=== PATIENT | female | born 1990 | race African-American/Black ===

== ENCOUNTER 2016-07-02 01:05 | Outpatient (CLI) | payer OTHER, BC ==
[2016-07-02 02:11] LABS: APPEARANCE,URINE CLEAR; BILIRUBIN,URINE NEGATIVE (NEGATIVE); GLUCOSE, URINE NEGATIVE (NEGATIVE); KETONES,URINE NEGATIVE (NEGATIVE); LEUKOCYTE ESTERASE,URINE SMALL (NEGATIVE); NITRITE,URINE NEGATIVE (NEGATIVE); PROTEIN,URINE NEGATIVE (NEGATIVE); URINE SPECIFIC GRAVITY 1.006; UROBILINOGEN,URINE NEGATIVE mg/dL (<2.0)
[2016-07-02 02:26] LABS: URINE BARBITURATES SCREEN NEGATIVE; URINE METHADONE SCREEN NEGATIVE; URINE OPIATES LOW NEGATIVE; URINE PHENCYCLIDINE SCREEN NEGATIVE
[2016-07-02] MEDS ORDERED: HYDROXYZINE PAMOATE 50 MG CAPSULE PO ONE (04:12)
[2016-07-02] MEDS ORDERED: HYDROXYZINE PAMOATE 50 MG CAPSULE ONE (04:14)
--- NOTE | 2016-07-02 04:25 | Non Stress Test Report ---
Non Stress Test Datetime Report Generated by CPN: 07/02/2016 04:25 DEMOGRAPHIC EGA NST: 39.5 INDICATION Indication for Study: Ordered by Provider Indication for Study (NST) Other: LC VITAL SIGNS Temperature - NST: 97.7 Pulse - NST: 60 RESP - NST: 15 NBPSYS NST: 132 NBPDIA NST: 85 URINE RESULTS Urine Protein, NST: Negative Urine Ketones - NST: Negative Urine Glucose - NST: Negative Urine Blood - NST: Positive MONITORING Monitor Explained: Monitor Explained; Test Explained; Patient Verbalized Understanding Time on Monitor: 07/02/2016 01:54 Time off Monitor: 07/02/2016 03:06 NST Duration: 72 NST INTERVENTIONS NST Interventions: PO Hydration; Reposition Patient BABY A: [id number] BABY A Movement : Present Contraction Frequency : 1.5-7 FHR Baseline : 130 Accelerations : 15X15 Variability : Moderate 6-25bpm NST Review: Meets Criteria for Reactive NST NST Review and Verified By : K Michael RN NST Results: Reactive NST COMMENTS NST Comments: Deceleration noted after prolonged contraction. Reactive NST post deceleration. Dr. Camarillo made aware. NST REPORT Report Trigger: Send Report
--- NOTE | 2016-07-02 04:45 | L&D General Admission ---
General Admit Datetime Report Generated by CPN: 07/02/2016 04:45 INFORMATION Patient Age: 26 (05/30/2016 16:29:QS system process) EDC: 07/04/2016 00:00 (07/02/2016 01:34:Christie Rodriguez RN) : 1 (07/02/2016 01:34:Christie Rodriguez RN) Para: 0 (07/02/2016 01:34:Christie Rodriguez RN) Term: 0 (07/02/2016 01:34:Christie Rodriguez RN) : 0 (07/02/2016 01:34:Christie Rodriguez RN) Spontaneous Abortions: 0 (07/02/2016 01:34:Christie Rodriguez RN) Induced Abortions: 0 (07/02/2016 01:34:Christie Rodriguez RN) Livin (07/02/2016 01:34:Christie Rodriguez RN) Cesareans: 0 (07/02/2016 01:34:Christie Rodriguez RN) VBACs: 0 (07/02/2016 01:34:Christie Rodriguez RN) Ectopic: 0 (07/02/2016 01:34:Christie Rodriguez RN) Multiple Births: 0 (07/02/2016 01:34:Christie Rodriguez RN) Baby, Number in Womb: 1 (07/02/2016 01:34:Christie Rodriguez RN) CARE Primary Pet Technologist: [facility] (07/02/2016 01:34:Christie Rodriguez RN) Month of 1st Visit: October (07/02/2016 01:34:Christie Rodriguez RN) Adequate Care: Yes (07/02/2016 01:34:Christie Rodriguez RN) Prepregnancy Weight (lb): 111 (07/02/2016 01:34:Christie Rodriguez RN) Prepregnancy Weight (kg): 50.5 (07/02/2016 01:34:QS system process) Height (in): 65 (07/02/2016 02:14:QS system process) ALLERGIES Medication Allergy: Yes (07/02/2016 01:34:Christie Rodriguez RN) Medication Allergies: Penicillins (07/02/2016) (07/02/2016 02:14:QS system process) Medication Allergies: Penicillins (01/04/2016) (05/30/2016 16:29:QS system process) Latex Allergy: No Latex Allergies (07/02/2016 01:34:Christie Rodriguez RN) COMMUNICATION Primary Language: Citizen Of [place] (07/02/2016 01:34:Christie Rodriguez RN) Medical Tx Preferred Language: Citizen Of [place] (07/02/2016 01:34:Christie Rodriguez RN) DEMOGRAPHICS Address: [address] [place] [id number] (05/30/2016 16:29:QS system process) Zipcode: [address] (05/30/2016 16:29:QS system process) Home (05/30/2016 16:29:QS system process) Work (07/02/2016 01:34:QS system process) Work (05/31/2016 05:33:QS system process) Work (05/30/2016 16:29:QS system process) SSN: [id number] (05/30/2016 16:29:QS system process) Next of Kin Name: ABEL HELMS (05/30/2016 16:29:QS system process) Next of Kin (05/30/2016 16:29:QS system process) Next of Kin Relationship: SPO (05/30/2016 16:29:QS system process) Date of : 1990 (05/30/2016 16:29:QS system process) Marital Status: (05/30/2016 16:29:QS system process) Sex: Female (05/30/2016 16:29:QS system process) Race: (05/30/2016 16:29:QS system process) Ethnicity: Non- or (05/30/2016 16:29:QS system process) Oriental Orthodox: None (05/30/2016 16:29:QS system process) DRUG AND ALCOHOL USE Alcohol: No (07/02/2016 01:34:Christie Rodriguez RN) Cigarettes: Former Smoker. [id number] (07/02/2016 01:34:Christie Rodriguez RN) Marijuana: No (07/02/2016 01:34:Christie Rodriguez RN) Cocaine: No (07/02/2016 01:34:Christie Rodriguez RN) Other Illicit Drugs: No (07/02/2016 01:34:Christie Rodriguez RN) VACCINE HISTORY Influenza Vaccine: No (07/02/2016 01:34:Christie Rodriguez RN) Pneumococcal Vaccine: No (07/02/2016 01:34:Chritsie Rodriguez RN) Tetanus Vaccine: Yes (07/02/2016 01:34:Christie Rodriguez RN) Tdap Vaccine: Yes (07/02/2016 01:34:Christie Rodriguez RN) Hepatitis B Vaccine: Yes (07/02/2016 01:34:Christie Rodriguez RN) Feeding Preference: Breast (07/02/2016 01:34:Christie Rodriguez RN) Benefit of Breast Feed Discussed: Yes (07/02/2016 01:34:Christie Rodriguez RN) Circumcision: Yes (07/02/2016 01:34:Christie Rodriguez RN) Classes Attended: Yes (07/02/2016 01:34:Christie Rodriguez RN) Tubal Ligation: No (07/02/2016 01:34:Christie Rodriguez RN) Tubal Authorization Signed: N/A (07/02/2016 01:34:Christie Rodriguez RN) Consent: N/A (07/02/2016 01:34:Christie Rodriguez RN) Consent Signed: N/A (07/02/2016 01:34:Christie Rodriguez RN) Pain Management Plans: None (07/02/2016 01:34:Christie Rodriguez RN) Plans for Labor and Delivery: None (07/02/2016 01:34:Christie Rodriguez RN) Support Person: Abel (07/02/2016 01:34:Christie Rodriguez RN) Support Person Relationship: (07/02/2016 01:34:Christie Rodriguez RN) Cultural/Spritual Practice: No (07/02/2016 01:34:Christie Rodriguez RN) Spir/Cult Dietary Needs: No (07/02/2016 01:34:Christie Rodriguez RN) LIVING SITUATION/DISCHARGE PLAN Living Arrangements: House (07/02/2016 01:34:Christie Rodriguez RN) Adequate Access to:: Electric; Heat; Refrigeration; Plumbing/Running water; Phone; Transportation (07/02/2016 01:34:Christie Rodriguez RN) WIC Program: No (07/02/2016 01:34:Christie Rodriguez RN) Discharge Italian Tutor Person: Abel (07/02/2016 01:34:Christie Rodriguez RN) Person to Help after Discharge: Abel (07/02/2016 01:34:Christie Rodriguez RN) Currently Using Commun Resources: No (07/02/2016 01:34:Christie Rodriguez RN) Car Seat for Discharge: Yes (07/02/2016 01:34:Christie Rodriguez RN) Adoption Requested: No (07/02/2016 01:34:Christie Rodriguez RN) Pt Contact w/infant Post : N/A (07/02/2016 01:34:Christie Rodriguez RN) LABS Blood Type: A Positive (07/02/2016 01:34:Christie Rodriguez RN) Antibody Screen: negative (07/02/2016 01:34:Christie Rodriguez RN) Group Beta Strep: positive (07/02/2016 01:34:Christie Rodriguez RN) Gonorrhea: Negative (07/02/2016 01:34:Christie Rodriguez RN) Chlamydia: Negative (07/02/2016 01:34:Christie Rodriguez RN) RPR/VDRL: Nonreactive (07/02/2016 01:34:Christie Rodriguez RN) Hepatitis B: Negative (07/02/2016 01:34:Christie Rodriguez RN) Rubella: Immune (07/02/2016 01:34:Christie Rodriguez RN) OB/PREVIOUS HISTORY History of Previous : No (07/02/2016 01:34:Christie Rodriguez RN) History of Gestational Diabetes: No (07/02/2016 01:34:Christie Rodriguez RN) History of PIH: No (07/02/2016 01:34:Christie Rodriguez RN) History of Incompetent Cervix: No (07/02/2016 01:34:Christie Rodriguez RN) History of Placenta Previa/Abrup: No (07/02/2016 01:34:Christie Rodriguez RN) History of Macrosomia: No (07/02/2016 01:34:Christie Rodriguez RN) History of IUGR: No (07/02/2016 01:34:Christie Rodriguez RN) History of Hemorrhage: No (07/02/2016 01:34:Christie Rodriguez RN) History of Loss/Stillborn: No (07/02/2016 01:34:Christie Rodriguez RN) History of : No (07/02/2016 01:34:Christie Rodriguez RN) History of D (Rh) Sensitization: No (07/02/2016 01:34:Christie Rodriguez RN) History Recurrent Loss/Stillborn: No (07/02/2016 01:34:Christie Rodriguez RN) History Depression/PP Depression: No (07/02/2016 01:34:Christie Rodriguez RN) History of Uterine Anomaly/ROSITA: No (07/02/2016 01:34:Christie Rodriguez RN) History of Infertility: No (07/02/2016 01:34:Christie Rodriguez RN) History of ART Treatment: No (07/02/2016 01:34:Christie Rodriguez RN) History of ROSITA: No (07/02/2016 01:34:Christie Rodriguez RN) Comments Obstetrical History: G1: current, hyperemesis, failed 1 hour gtt passed 3 hour (07/02/2016 01:34:Christie Rodriguez RN) MEDICAL HISTORY Med Hx Diabetes: No (07/02/2016 01:34:Christie Rodriguez RN) Med Hx Hypertension: No (07/02/2016 01:34:Christie Rodriguez RN) Med Hx Heart Disease: No (07/02/2016 01:34:Christie Rodriguez RN) Med Hx Autoimmune Disorder: No (07/02/2016 01:34:Christie Rodriguez RN) Med Hx Kidney Disease/UTI: No (07/02/2016 01:34:Christie Rodriguez RN) Med Hx Neurologic/Epilepsy: No (07/02/2016 01:34:Christie Rodriguez RN) Med Hx Psychiatric Disorders: No (07/02/2016 01:34:Christie Rodriguez RN) Med Hx Hepatitis/Liver Disease: No (07/02/2016 01:34:Christie Rodriguez RN) Med Hx Varicosities/Phlebitis: No (07/02/2016 01:34:Christie Rodriguez RN) Med Hx Thyroid Dysfunction: No (07/02/2016 01:34:Christie Rodriguez RN) Med Hx Trauma/Violence: No (07/02/2016 01:34:Christie Rodriguez RN) Med Hx Blood Transfusion: No (07/02/2016 01:34:Christie Rodriguez RN) Med Hx Pulmonary (Asthma,TB): No (07/02/2016 01:34:Christie Rodriguez RN) Med Hx Breast: No (07/02/2016 01:34:Christie Rodriguez RN) Med Hx TRAVEL COTA Surgery: No (07/02/2016 01:34:Christie Rodriguez RN) Med Hx Hospitalization/Surgery: No (07/02/2016 01:34:Christie Rodriguez RN) Med Hx Anesthetic Complications: No (07/02/2016 01:34:Christie Rodriguez RN) Med Hx Abnormal Pap Smear: Yes (07/02/2016 01:34:Christie Rodriguez RN) Other Medical Diseases: No (07/02/2016 01:34:Christie Rodriguez RN) Med Hx Significant Family Hx: No (07/02/2016 01:34:Christie Rodriguez RN) Details of Med/Surg Hx: abd pap and LEEP 2010 (07/02/2016 01:34:Christie Rodriguez RN) INFECTIOUS HISTORY Inf Hx Gonorrhea: No (07/02/2016 01:34:Christie Rodriguez RN) Inf Hx Chlamydia: No (07/02/2016 01:34:Christie Rodriguez RN) Inf Hx Syphilis: No (07/02/2016 01:34:Christie Rodriguez RN) Inf Hx HIV/AIDS: No (07/02/2016 01:34:Christie Rodriguez RN) Inf Hx Human Papilloma Virus: No (07/02/2016 01:34:Christie Rodriguez RN) Inf Hx Pt/Partner Genital Herpes: No (07/02/2016 01:34:Christie Rodriguez RN) Inf Hx Tuberculosis/Exposure: No (07/02/2016 01:34:Christie Rodriguez RN) Inf Hx Hepatitis B,C: No (07/02/2016 01:34:Christie Rodriguez RN) Inf Hx Rash or Viral Illness: No (07/02/2016 01:34:Christie Rodriguez RN) GENETIC HISTORY Gen Hx Age >=35 at CHIN: No (07/02/2016 01:34:Christie Rodriguez RN) Gen Hx Thalassemia: No (07/02/2016 01:34:Christie Rodriguez RN) Gen Hx Congenital Heart Defect: No (07/02/2016 01:34:Christie Rodriguez RN) Gen Hx Neural Tube Defect: No (07/02/2016 01:34:Christie Rodriguez RN) Gen Hx Down's Syndrome: No (07/02/2016 01:34:Christie Rodriguez RN) Gen Hx Luis-Sachs: No (07/02/2016 01:34:Christie Rodriguez RN) Gen Hx Amadou: No (07/02/2016 01:34:Christie Rodriguez RN) Gen Hx Familial Dysautonomia: No (07/02/2016 01:34:Christie Rodriguez RN) Gen Hx Sickle Cell Disease/Trait: Yes (07/02/2016 01:34:Christie Rodriguez RN) Gen Hx Hemophilia/Blood Disorder: No (07/02/2016 01:34:Christie Rodriguez RN) Gen Hx Muscular Dystrophy: No (07/02/2016 01:34:Christie Rodriguez RN) Gen Hx Cystic Fibrosis: No (07/02/2016 01:34:Christie Rodriguez RN) Gen Hx [place] Chorea: No (07/02/2016 01:34:Christie Rodriguez RN) Gen Hx Mental Retardation/Autism: No (07/02/2016 01:34:Christie Rodriguez RN) Gen Hx Tested for Fragile X: No (07/02/2016 01:34:Christie Rodriguez RN) Gen Hx Other Inher/Chromosomal: No (07/02/2016 01:34:Christie Rodriguez RN) Gen Hx Maternal Metabolic DO: No (07/02/2016 01:34:Christie Rodriguez RN) Gen Hx Pt Father or FOB Defect: No (07/02/2016 01:34:Christie Rodriguez RN) Gen Hx Other Genetic History: No (07/02/2016 01:34:Christie Rodriguez RN) Gen Hx Drugs/Meds since LMP: Yes (07/02/2016 01:34:Christie Rodriguez RN) Gen Hx Medications: pnv, zofran (07/02/2016 01:34:Christie Rodriguez RN) Details of Genetic History: pt has sickle cell trait, pt brothers have sickle cell; FOB negative (07/02/2016 01:34:Christie Rodriguez RN)
--- NOTE | 2016-07-02 04:45 | L&D Current Admission ---
Current Admit Datetime Report Generated by CPN: 07/02/2016 04:45 ADMISSION INFORMATION Chief Complaint: Contractions; Suspected Rupture of Membranes; Vaginal Bleeding (07/02/2016 02:00:Christie Rodriguez RN)
--- NOTE | 2016-07-02 04:45 | L&D Discharge Summary ---
OB Discharge Summary Datetime Report Generated by CPN: 07/02/2016 04:45 DISCHARGE DIAGNOSIS Number of Babies in Womb: 1 Parity: 0
--- NOTE | 2016-07-02 04:45 | L&D Admission Assessment ---
LD ADM ASMT Datetime Report Generated by CPN: 07/02/2016 04:45 PATIENT ASSESSMENT Assessment Type: Triage (07/02/2016 02:00:Christie Falll, RN) WEIGHT Weight (lb): 134 (07/02/2016 03:42:QS system process) Weight (lb): 134 (07/02/2016 02:14:QS system process) Weight (kg): 60.9 (07/02/2016 03:42:QS system process) Weight (kg): 60.9 (07/02/2016 02:14:QS system process) Total Wt Gain (lb): 23 (07/02/2016 03:42:QS system process) Total Wt Gain (lb): 23 (07/02/2016 02:14:QS system process) Wt Gain (kg): 10.5 (07/02/2016 03:42:QS system process) Wt Gain (kg): 10.5 (07/02/2016 02:14:QS system process) BMI: 22.3 (07/02/2016 03:42:QS system process) PAIN Pain Scale: 3 (07/02/2016 02:00:Christie Michael, RN) Pain Presence: Intermittent (07/02/2016 02:00:Christie Michael, RN) Pain Type: Contraction (07/02/2016 02:00:Christie Michael, RN) Pain Location: Abdomen; Back (07/02/2016 02:00:Christie Michael, RN) Pain Related to Contraction: Yes (07/02/2016 02:00:Christie Michael, RN) CONTRACTIONS Frequency (min): 1-5 (07/02/2016 03:06:Christie Michael, RN) Frequency (min): 3-7 (07/02/2016 02:45:Christie Michael, RN) Frequency (min): 6-7 (07/02/2016 02:15:Christie Michael, RN) Frequency (min): 5-6 (07/02/2016 02:00:Christie Michael, RN) Duration (sec): 60-120 (07/02/2016 03:06:Christie Michael, RN) Duration (sec): 50-120 (07/02/2016 02:45:Christie Michael, RN) Duration (sec): 60-120 (07/02/2016 02:15:Christie Michael, RN) Quality: Mild/Moderate (07/02/2016 03:06:Christie Michael, RN) Quality: Mild/Moderate (07/02/2016 02:45:Christie Michael, RN) Quality: Mild/Moderate (07/02/2016 02:15:Chirstie Michael, RN) Quality: Mild/Moderate (07/02/2016 02:00:Christie Michael, RN) Resting Tone [place]: Relaxed (07/02/2016 03:06:Christie Michael, RN) Resting Tone [place]: Relaxed (07/02/2016 02:45:Christie Michael, RN) Resting Tone [place]: Relaxed (07/02/2016 02:15:Christie Michael, RN) VAGINAL EXAM Dilatation (cm): 4.0 (07/02/2016 04:05:Christie Rodriguez RN) Dilatation (cm): 4.0 (07/02/2016 03:05:Christie Rodriguez RN) Dilatation (cm): 3.5 (07/02/2016 01:55:Christie Rodriguez RN) Effacement (%): 90 (07/02/2016 04:05:Christie Rodriguez RN) Effacement (%): 70 (07/02/2016 03:05:Christie Rodriguez RN) Effacement (%): 60 (07/02/2016 01:55:Christie Rodriguez RN) Station: 0 (07/02/2016 04:05:Christie Rodriguez RN) Station: 0 (07/02/2016 03:05:Christie Rodriguez RN) Station: -3 (07/02/2016 01:55:Christie Rodriguez RN) Fern: Collected and sent (07/02/2016 01:50:Christie Rodriguez RN) NEURO Level of Consciousness: Fully Conscious (07/02/2016 02:00:Christie Rodriguez RN) DTR's/Clonus: DTRs 2+; No Clonus (07/02/2016 02:00:Christie Rodriguez RN) Headache: Denies (07/02/2016 02:00:Christie Rodriguez RN) Dizziness: No (07/02/2016 02:00:Christie Rodriguez RN) Blurred Vision: No (07/02/2016 02:00:Christie Rodriguez RN) Extremity Numbness/Tingling : None (07/02/2016 02:00:Christie Rodriguez RN) Extremity Movement: Full Range of Motion (07/02/2016 02:00:Christie Michael, RN) CARDIOVASCULAR Heart Rhythm: Regular (07/02/2016 02:00:Christie Rodriguez RN) Nailbeds: Anon Raices (07/02/2016 02:00:Christie Rodriguez RN) Capillary Refill: Less than 3 Seconds (07/02/2016 02:00:Christie Rodriguez RN) Lower Extremities Edema: None (07/02/2016 02:00:Christie Rodriguez RN) Lower Extremities Edema Degree: None (07/02/2016 02:00:Christie Rodriguez RN) Upper Extremities Edema: None (07/02/2016 02:00:Christie Rodriguez RN) Facial Edema: None (07/02/2016 02:00:Christie Rodriguez RN) Val's Sign Left Leg: Negative (07/02/2016 02:00:Christie Rodriguez RN) Val's Sign Right Leg: Negative (07/02/2016 02:00:Christie Rodriguez RN) DVT RISK ASSESSMENT DVT Risk Age: Age less than 41 years (07/02/2016 02:00:Christie Rodriguez RN) DVT Risk BMI: BMI<31 (07/02/2016 02:00:Christie Rodriguez RN) DVT Risk Surgery: None Applicable (07/02/2016 02:00:Christie Rodriguez RN) DVT Risk Other: Women Only- or (<1 month) (07/02/2016 02:00:Christie Rodriguez RN) DVT Risk Total: 1 (07/02/2016 02:00:QS system process) DVT Risk Text: Low Risk (<10%) No specific measures, early ambulation (07/02/2016 02:00:QS system process) RESPIRATORY Respiratory Effort: Unlabored; Regular Rhythm; Equal Expansion (07/02/2016 02:00:Christie Michael, RN) Breath Sounds, Left: Clear and Equal (07/02/2016 02:00:Christie Michael, RN) Breath Sounds, Right: Clear and Equal (07/02/2016 02:00:Christie Michael, RN) Cough Productivity: None (07/02/2016 02:00:Christie Michael, RN) GASTROINTESTINAL Nausea/Vomiting: Denies (07/02/2016 02:00:Christie Michael, RN) Bowel Sounds: Normoactive; All Quadrants (07/02/2016 02:00:Christie Michael, RN) RUQ Epigastric Pain: Denies (07/02/2016 02:00:Christie Michael, RN) Bowel Patterns: Constipation (07/02/2016 02:00:Christie Michael, RN) Hemorrhoids: Present (07/02/2016 02:00:Christie Michael, RN) Diet Type: Regular diet (07/02/2016 02:00:Christie Michael, RN) Last Meal: 07/01/2016 22:30 (07/02/2016 02:00:Christie Michael, RN) GENITOURINARY Bladder: Nondistended (07/02/2016 02:00:Christie Michael, RN) Frequency of Urination: No (07/02/2016 02:00:Christie Michael, RN) Urination Burning: No (07/02/2016 02:00:Christie Michael, RN) CVA Tenderness: No (07/02/2016 02:00:Christie Michael, RN) Vaginal Bleeding: None (07/02/2016 02:00:Christie Rodriguez RN) Vaginal Discharge Color: N/A (07/02/2016 02:00:Christie Rodriguez RN) INTEGUMENTARY Skin Color: Normal for Race (07/02/2016 02:00:Christie Rodriguez RN) Skin Temperature: Warm (07/02/2016 02:00:Christie Rodriguez RN) Skin Moisture: Dry (07/02/2016 02:00:Christie Rodriguez RN) Surgical Scars: no (07/02/2016 02:00:Christie Rodriguez RN) Body Piercings/Tattoos: yes (07/02/2016 02:00:Christie Rodriguez RN) NIMISHA SKIN ASSESSMENT Nimisha Scale Sensory Perception: No Impairment- Responds to verbal commands. Has no sensory deficit which would limit ability to feel or voice pain or discomfort (07/02/2016 02:00:Christie Rodriguez RN) Nimisha Scale Moisture: Rarely Moist- Skin is usually dry. Linen only requires changing at routine intervals (07/02/2016 02:00:Christie Rodriguez RN) Nimisha Scale Activity: Walks Frequently- Walks outside the room at least twice a day and inside room at least every 2 hours during the day. (07/02/2016 02:00:Christie Rodriguez RN) Nimisha Scale Mobility: No Limitations- Makes major and frequent changes in position without assistance (07/02/2016 02:00:Christie Rodriguez RN) Nimisha Scale Nutrition: Excellent- Eats most of every meal. Never refuses a meal. Usually eats a total of 4 or more servings of meat and dairy products. Occasionally eats between meals. Does not require supplementation (07/02/2016 02:00:Christie Rodriguez RN) Nimisha Scale Friction and Shear: No Apparent Problem- Moves in bed and in chair independently and has sufficient muscle strength to lift up completely during move. Maintains good position in bed or chair at all times (07/02/2016 02:00:Christie Rodriguez RN) Nimisha Scale Total: 23 (07/02/2016 02:00:QS system process) Nimisha Scale Risk: No Risk of Pressure Ulcer Noted at this Time (07/02/2016 02:00:QS system process) SUPPORT Family Support: Significant Other supportive, at bedside frequently (07/02/2016 02:00:Christie Rodriguez RN) Emotional State: Calm/Relaxed (07/02/2016 02:00:Christie Rodriguez RN) SAFETY Call Pack Within Reach: Yes (07/02/2016 02:00:Christie Rodriguez RN) Side Rails Up: Yes (07/02/2016 02:00:Christie Rodriguez RN) Bed Wheels Locked: Yes (07/02/2016 02:00:Christie Rodriguez RN) Arm Bands Present: Yes (07/02/2016 02:00:Christie Rodriguez RN) FALL SCREEN Fall Risk History of Falling: (0) No (07/02/2016 02:00:Christie Rodriguez RN) Fall Risk Secondary Diagnosis: (0) No (07/02/2016 02:00:Christie Rodriguez RN) Fall Risk Ambulatory Aid: (0) None/Bedrest/Wheelchair/Nurse Assist (07/02/2016 02:00:Christie Rodriguez RN) Fall Risk IV Therapy: (0) No (07/02/2016 02:00:Christie Rodriguez RN) Fall Risk Gait: (0) Normal/Bedrest/Immobile (07/02/2016 02:00:Christie Rodriguez RN) Fall Risk Mental Status: (0) Oriented to Own Ability (07/02/2016 02:00:Christie Rodriguez RN) Fall Risk Score: 0 (07/02/2016 02:00:QS system process) Fall Risk Score Definition: No Risk: No action required (07/02/2016 02:00:QS system process) RECENT TRAVEL/INFECTIOUS DISEASE Recent Exp Communicable Disease: No (07/02/2016 02:00:Christie Rodriguez RN) Cough or Fever: No (07/02/2016 02:00:Christie Rodriguez RN) Foreign Travel Past 10 Days: No (07/02/2016 02:00:Christie Rodriguez RN) Open Wounds or Sores: No (07/02/2016 02:00:Christie Rodriguez RN) Prior Antibiotic Resistance Tx: No (07/02/2016 02:00:Christie Rodriguez RN) Cultures Obtained: Not Applicable (07/02/2016 02:00:Christie Rodriguez RN) Isolation Initiated: No (07/02/2016 02:00:Christie Rodriguez RN) Pt/Family Education: Not Applicable (07/02/2016 02:00:Christie Rodriguez RN) BABY A FHR Baseline Rate (bpm) Baby A: 135 (07/02/2016 03:06:Christie Rodriguez RN) FHR Baseline Rate (bpm) Baby A: 130 (07/02/2016 02:45:Christie Rodriguez RN) FHR Baseline Rate (bpm) Baby A: 130 (07/02/2016 02:15:Christie Rodriguez RN) Variability Baby A: Moderate 6-25 bpm (07/02/2016 03:06:Christie Rodriguez RN) Variability Baby A: Moderate 6-25 bpm (07/02/2016 02:45:Christie Rodriguez RN) Variability Baby A: Moderate 6-25 bpm (07/02/2016 02:15:Christie Rodriguez RN) Accelerations Baby A: Prolonged (07/02/2016 03:06:Christie Rodriguez RN) Accelerations Baby A: 15X15 (07/02/2016 02:45:Christie Rodriguez RN) Accelerations Baby A: 15X15 (07/02/2016 02:15:Christie Rodriguez RN) Decelerations Baby A: None (07/02/2016 02:45:Christie Rodriguez RN) Decelerations Baby A: None (07/02/2016 02:15:Christie Rodriguez RN)
--- NOTE | 2016-07-02 04:45 | L&D Flow Sheet ---
LD Flowsheet Datetime Report Generated by CPN: 07/02/2016 04:45 Datetime: 07/02/2016 04:22 Teaching Instructional Method: Verbal; Written; Patient Instructed; Family/Support Person Instructed; Verbalized Understanding (Christie Rodriguez RN) Teaching Comments: term labor care notes and reasons to return to include increased frequency/intensity of ctx, suspected ROM, decreased movement or heavy vaginal bleeding discussed. Pt and agree to POC and all questions answered at this time (Christie Michael, RN) Additional Nursing Comments: Pt discharged from unit in stable condition; ambulatory, accompanied by (Christie Michael, RN) Datetime: 07/02/2016 04:20 Medications Medication Comments: vistaril 50 mg PO (Christie Michael, RN) Datetime: 07/02/2016 04:09 Communication Comments: Call placed to Dr Camarillo, report given re: repeat SVE. Orders received for pt d/c and vistaril [address] Camarillo, additional monitoring not necessary (Christie Michael, RN) Datetime: 07/02/2016 04:05 Vaginal Exam Dilatation (cm): 4.0 (Christie Michael, RN) Effacement (%): 90 (Christie Michael, RN) Station: 0 (Christie Michael, RN) Exam by: K Michael RN (Christie Michael, RN) Datetime: 07/02/2016 03:06 Uterine Activity Monitor Mode: External (Christie Michael, RN) Frequency (min): 1-5 (Christie Michael, RN) Quality: Mild/Moderate (Christie Michael, RN) Duration (sec): 60-120 (Christie Michael, RN) Resting Tone (Palpate): Relaxed (Christie Michael, RN) Assessment A Monitor Mode: External US (Christie Michael, RN) FHR Baseline Rate : 135 (Christie Michael, RN) Variability: Moderate 6-25 bpm (Christie Michael, RN) Accelerations: Prolonged (Christie Michael, RN) Comments: Monitors discontinued for pt to ambulate 2nd floor/ use birthing ball x 1 hour (Christie Michael, RN) Comments: decel noted (Christie Michael, RN) Datetime: 07/02/2016 03:05 Vaginal Exam Dilatation (cm): 4.0 (Christie Michael, RN) Effacement (%): 70 (Christie Michael, RN) Station: 0 (Christie Michael, RN) Exam by: K Michael RN (Christie Michael, RN) Patient Care Patient Position/Activity: Right Tilt (Christie Michael, RN) Patient Care Comments: Pt put on tilt; was laying on back (Christie Michael, RN) Datetime: 07/02/2016 03:01 Communication Communication: Provider Orders Received; Call/Page Placed to Provider (Christie Michael, RN) Communication Comments: Call placed to Dr Camarillo, report given to include pt presence, hx, SVE and repeat SVE, FHR tracing to include possible decel post prolonged ctx. Orders to walk pt if she desires and repeat SVE after ambulation (Christie Michael, RN) Datetime: 07/02/2016 02:45 Uterine Activity Monitor Mode: External (Christie Michael, RN) Frequency (min): 3-7 (Christie Michael, RN) Quality: Mild/Moderate (Christie Michael, RN) Duration (sec): 50-120 (Christie Michael, RN) Resting Tone (Palpate): Relaxed (Christie Michael, RN) Assessment A Monitor Mode: External US (Christie Michael, RN) FHR Baseline Rate : 130 (Christie Michael, RN) Variability: Moderate 6-25 bpm (Christie Michael, RN) Accelerations: 15X15 (Christie Michael, RN) Decelerations: None (Christie Michael, RN) Datetime: 07/02/2016 02:15 Uterine Activity Monitor Mode: External; Palpation (Christie Michael, RN) Frequency (min): 6-7 (Christie Michael, RN) Quality: Mild/Moderate (Christie Michael, RN) Duration (sec): 60-120 (Christie Michael, RN) Resting Tone (Palpate): Relaxed (Christie Michael, RN) Assessment A Monitor Mode: External US (Christie Michael, RN) FHR Baseline Rate : 130 (Christie Michael, RN) Variability: Moderate 6-25 bpm (Christie Michael, RN) Accelerations: 15X15 (Christie Michael, RN) Decelerations: None (Christie Michael, RN) Datetime: 07/02/2016 02:00 Frequency (min): 5-6 (Christie Michael, RN) Quality: Mild/Moderate (Christie Michael, RN) Pain Pain Scale: 3 (Christie Michael, RN) Pain Presence: Intermittent (Christie Michael, RN) Pain Type: Contraction (Christie Michael, RN) Pain Location: Abdomen; Back (Christie Michael, RN) Pain Relief Measures: Comfort Measures (Christie Michael, RN) Pain Coping: Talking Through Contractions; Breathing Through Contractions (Christie Michael, RN) Vaginal Bleeding: Normal Show (Christie Michael, RN) Maternal Assessment Level of Consciousness: Fully Conscious (Christie Michael, RN) DTR's/Clonus: DTRs 2+; No Clonus (Christie Michael, RN) Headache: Denies (Christie Michael, RN) Breath Sounds, Left: Clear and Equal (Christie Michael, RN) Breath Sounds, Right: Clear and Equal (Christie Michael, RN) Nausea/Vomiting: Denies (Christie Michael, RN) RUQ Epigastric Pain: Denies (Christie Michael, RN) Patient Care Patient Position/Activity: Right Tilt (Christie Michael, RN) Comfort Measures: Family Support (Christie Michael, RN) Teaching Instructional Method: Verbal; Patient Instructed; Family/Support Person Instructed; Verbalized Understanding (Christie Rodriguez RN) Plan of Care: Plan of Care Discussed; Vaginal Delivery (Christie Rodriguez RN) LaborFlag: Antepartum (QS system process) Datetime: 07/02/2016 01:56 NBP Sys/Kait/Mean (mmHg): 132 (QS system process) : 85 (QS system process) : 103 (QS system process) Pulse: 60 (QS system process) Respirations: 15 (Christie Michael, RN) Temperature (F): 97.7 (Christie Michael, RN) Temperature (C): 36.5 (QS system process) Temperature Route: Oral (Christie Michael, RN) LaborFlag: Antepartum (QS system process) Datetime: 07/02/2016 01:55 Vaginal Exam Dilatation (cm): 3.5 (Christie Rodriguez RN) Effacement (%): 60 (Christie Rodriguez RN) Station: -3 (Christie Rodriguez RN) Exam by: Michael Rodriguez RN (Christie Rodriguez RN) Vaginal Bleeding: None (Christie Rodriguez RN) Cervix, Consistency: Soft (Christie Rodriguez RN) Cervix, Position: Posterior (Christie Rodriguez RN) Vaginal Exam Comments: SVE 06-02/70/0 at office visit on 06/29 (Christie Rodriguez RN) Datetime: 07/02/2016 01:54 Vital Signs Stage of : Antepartum (Christie Rodriguez RN) Datetime: 07/02/2016 01:50 Fern: Collected and sent (Christie Rodriguez RN)
[2016-07-02] MEDS ORDERED: RINGERS SOLUTION,LACTATED 1,000 ML IV ONE (08:24)
[2016-07-02] MEDS ORDERED: RINGERS SOLUTION,LACTATED 1,000 ML IV PRN (08:24)
[2016-07-02] MEDS ORDERED: VANCOMYCIN HCL 1,000 MG in DEXTROSE 5%-WATER 250 ML IV SCH (08:30)
== END 2016-07-02 04:22 | disposition home or self-care (01) ==
LOC: EDSTATUS 01:32 → LC 01:34
PROVIDERS: ATTEND Obstetrics & Gynecology
PROC: 4A1HXCZ Monitoring of Products of Conception, Cardiac Rate, External Approach (ICD-10-PCS; principal; 2016-07-02)
DX: O47.1 False labor at or after 37 completed weeks of gestation (principal); O76 Abnormality in fetal heart rate and rhythm complicating labor and delivery; Z3A.39 39 weeks gestation of pregnancy
CPT/HCPCS: 59025; 81005; 80307; Q0114

== ENCOUNTER 2016-07-02 07:46 | Inpatient (IN) | payer OTHER, BC ==
--- NOTE | 2016-07-02 08:00 | L&D Flow Sheet ---
LD Flowsheet Datetime Report Generated by CPN: 07/02/2016 08:00 Datetime: 07/02/2016 04:22 Teaching Instructional Method: Verbal; Written; Patient Instructed; Family/Support Person Instructed; Verbalized Understanding (Christie Rodriguez RN) Teaching Comments: term labor care notes and reasons to return to include increased frequency/intensity of ctx, suspected ROM, decreased movement or heavy vaginal bleeding discussed. Pt and agree to POC and all questions answered at this time (Christie Michael, RN) Additional Nursing Comments: Pt discharged from unit in stable condition; ambulatory, accompanied by (Christie Michael, RN) Datetime: 07/02/2016 04:20 Medications Medication Comments: vistaril 50 mg PO (Christie Michael, RN) Datetime: 07/02/2016 04:09 Communication Comments: Call placed to Dr Camarillo, report given re: repeat SVE. Orders received for pt d/c and vistaril [address] Camarillo, additional monitoring not necessary (Christie Michael, RN) Datetime: 07/02/2016 04:05 Vaginal Exam Dilatation (cm): 4.0 (Christie Michael, RN) Effacement (%): 90 (Christie Michael, RN) Station: 0 (Christie Michael, RN) Exam by: K Michael RN (Christie Michael, RN) Datetime: 07/02/2016 03:06 Uterine Activity Monitor Mode: External (Christie Michael, RN) Frequency (min): 1-5 (Christie Michael, RN) Quality: Mild/Moderate (Christie Michael, RN) Duration (sec): 60-120 (Christie Michael, RN) Resting Tone (Palpate): Relaxed (Christie Michael, RN) Assessment A Monitor Mode: External US (Christie Michael, RN) FHR Baseline Rate : 135 (Christie Michael, RN) Variability: Moderate 6-25 bpm (Chrisite Michael, RN) Accelerations: Prolonged (Christie Michael, RN) Comments: Monitors discontinued for pt to ambulate 2nd floor/ use birthing ball x 1 hour (Christie Michael, RN) Comments: decel noted (Christie Michael, RN) Datetime: 07/02/2016 03:05 Vaginal Exam Dilatation (cm): 4.0 (Christie Michael, RN) Effacement (%): 70 (Christie Michael, RN) Station: 0 (Christie Michael, RN) Exam by: K Michael RN (Christie Michael, RN) Patient Care Patient Position/Activity: Right Tilt (Christie Michael, RN) Patient Care Comments: Pt put on tilt; was laying on back (Christie Michael, RN) Datetime: 07/02/2016 03:01 Communication Communication: Provider Orders Received; Call/Page Placed to Provider (Christie Michael, RN) Communication Comments: Call placed to Dr Camarillo, report given to include pt presence, hx, SVE and repeat SVE, FHR tracing to include possible decel post prolonged ctx. Orders to walk pt if she desires and repeat SVE after ambulation (Christie Michael, RN) Datetime: 07/02/2016 02:45 Uterine Activity Monitor Mode: External (Christie Imchael, RN) Frequency (min): 3-7 (Christie Michael, RN) Quality: Mild/Moderate (Christie Michael, RN) Duration (sec): 50-120 (Christie Michael, RN) Resting Tone (Palpate): Relaxed (Christie Michael, RN) Assessment A Monitor Mode: External US (Christie Michael, RN) FHR Baseline Rate : 130 (Christie Michael, RN) Variability: Moderate 6-25 bpm (Christie Michael, RN) Accelerations: 15X15 (Christie Michael, RN) Decelerations: None (Christie Michael, RN) Datetime: 07/02/2016 02:15 Uterine Activity Monitor Mode: External; Palpation (Christie Michael, RN) Frequency (min): 6-7 (Christie Michael, RN) Quality: Mild/Moderate (Christie Michael, RN) Duration (sec): 60-120 (Christie Michael, RN) Resting Tone (Palpate): Relaxed (Christie Michael, RN) Assessment A Monitor Mode: External US (Christie Michael, RN) FHR Baseline Rate : 130 (Christie Michael, RN) Variability: Moderate 6-25 bpm (Christie Michael, RN) Accelerations: 15X15 (Christie Michael, RN) Decelerations: None (Christie Michael, RN) Datetime: 07/02/2016 02:00 Frequency (min): 5-6 (Christie Michael, RN) Quality: Mild/Moderate (Christie Michael, RN) Pain Pain Scale: 3 (Christie Michael, RN) Pain Presence: Intermittent (Christie Michael, RN) Pain Type: Contraction (Christie Michael, RN) Pain Location: Abdomen; Back (Christie Michael, RN) Pain Relief Measures: Comfort Measures (Christie Michael, RN) Pain Coping: Talking Through Contractions; Breathing Through Contractions (Christie Michael, RN) Vaginal Bleeding: Normal Show (Christie Michael, RN) Maternal Assessment Level of Consciousness: Fully Conscious (Christie Michael, RN) DTR's/Clonus: DTRs 2+; No Clonus (Christie Michael, RN) Headache: Denies (Christie Michael, RN) Breath Sounds, Left: Clear and Equal (Christie Michael, RN) Breath Sounds, Right: Clear and Equal (Christie Michael, RN) Nausea/Vomiting: Denies (Christie Michael, RN) RUQ Epigastric Pain: Denies (Christie Michael, RN) Patient Care Patient Position/Activity: Right Tilt (Christie Michael, RN) Comfort Measures: Family Support (Christie Michael, RN) Teaching Instructional Method: Verbal; Patient Instructed; Family/Support Person Instructed; Verbalized Understanding (Christie Rodriguez RN) Plan of Care: Plan of Care Discussed; Vaginal Delivery (Christie Rodriguez RN) LaborFlag: Antepartum (QS system process) Datetime: 07/02/2016 01:56 NBP Sys/Kait/Mean (mmHg): 132 (QS system process) : 85 (QS system process) : 103 (QS system process) Pulse: 60 (QS system process) Respirations: 15 (Christie Michael, RN) Temperature (F): 97.7 (Christie Michael, RN) Temperature (C): 36.5 (QS system process) Temperature Route: Oral (Christie Michael, RN) LaborFlag: Antepartum (QS system process) Datetime: 07/02/2016 01:55 Vaginal Exam Dilatation (cm): 3.5 (Christie Rodriguez RN) Effacement (%): 60 (Christie Rodriguez RN) Station: -3 (Christie Rodriguez RN) Exam by: Michael Rodriguez RN (Christie Rodriguez RN) Vaginal Bleeding: None (Christie Rodriguez RN) Cervix, Consistency: Soft (Christie Rodriguez RN) Cervix, Position: Posterior (Christie Rodriguez RN) Vaginal Exam Comments: SVE 06-02/70/0 at office visit on 06/29 (Christie Rodriguez RN) Datetime: 07/02/2016 01:54 Vital Signs Stage of : Antepartum (Christie oRdriguez RN) Datetime: 07/02/2016 01:50 Fern: Collected and sent (Christie Rodriguez RN)
[2016-07-02] MEDS ORDERED: OXYTOCIN/NORMAL SALINE 20 UNIT/1,000 ML RTUINJ ONE (08:18)
[2016-07-02] MEDS ORDERED: LIDOCAINE 1% INJ-PF (10 MG/ML) 30 ML SDV ONE (08:18)
[2016-07-02] MEDS ORDERED: MISOPROSTOL 0.2 MG TABLET ONE (08:18)
[2016-07-02] MEDS ORDERED: CLINDAMYCIN 900 MG/D5W RTU 50 ML IV ONE (08:19)
[2016-07-02 08:48] LABS: ABSOLUTE MONOCYTES (AUTO) 0.4 10^3/uL (0.1-1.4); ABSOLUTE NEUT (AUTO) 7.7 10^3/uL (1.7-8.2); BASOPHILS % (AUTO) 0.2 % (0-2); HEMATOCRIT 35.6 % (36.0-47.0); HEMOGLOBIN 12.6 g/dL (12.0-15.5); HGB HCT DIFFERENCE 2.2; LYMPHOCYTES % (AUTO) 10.5 % (13-45); MEAN CORPUSCULAR HEMOGLOBIN 28.6 pg (27.0-33.4); MEAN CORPUSCULAR HGB CONC 35.5 g/dL (32.0-36.0); MEAN CORPUSCULAR VOLUME 81 fl (80-97); MONOCYTES % (AUTO) 4.5 % (3-13); RED BLOOD COUNT 4.42 10^6/uL (3.72-5.28); RED CELL DISTRIBUTION WIDTH 13.9 % (11.5-14.0); SEGMENTED NEUTROPHILS % (AUTO) 84.8 % (42-78); WHITE BLOOD COUNT 9.1 10^3/uL (4.0-10.5)
[2016-07-02] MEDS ORDERED: VANCOMYCIN HCL INJ 1000 MG VIAL ONE (09:07)
[2016-07-02 09:14] LABS: APPEARANCE,URINE SLIGHTLY-CLOUDY; BILIRUBIN,URINE NEGATIVE (NEGATIVE); GLUCOSE, URINE NEGATIVE (NEGATIVE); KETONES,URINE NEGATIVE (NEGATIVE); LEUKOCYTE ESTERASE,URINE TRACE (NEGATIVE); NITRITE,URINE NEGATIVE (NEGATIVE); PROTEIN,URINE NEGATIVE (NEGATIVE); URINE SPECIFIC GRAVITY 1.013; UROBILINOGEN,URINE NEGATIVE mg/dL (<2.0)
[2016-07-02 09:50] LABS: URINE BARBITURATES SCREEN NEGATIVE; URINE METHADONE SCREEN NEGATIVE; URINE OPIATES LOW NEGATIVE; URINE PHENCYCLIDINE SCREEN NEGATIVE
[2016-07-02] MEDS ORDERED: VANCOMYCIN HCL INJ 1000 MG VIAL IV SCH (10:00)
[2016-07-02] MEDS ORDERED: RINGERS SOLUTION,LACTATED 1,000 ML IV PRN (11:01)
[2016-07-02] MEDS ORDERED: RINGERS SOLUTION,LACTATED 1,000 ML IV ONE (12:00)
[2016-07-02] MEDS ORDERED: DIPH/PERTUSS(ACELL)/TETANUS VAC/PF 0.5 ML SYR (>=10YO) IM PRN (12:01)
[2016-07-02] MEDS ORDERED: OXYTOCIN/NORMAL SALINE 1,000 ML IV PRN (12:01)
[2016-07-02] MEDS ORDERED: MEASLES,MUMPS&RUBELLA VACC/PF 0.5 ML VIAL SUBCUT PRN (12:01)
[2016-07-02] MEDS ORDERED: ACETAMINOPHEN WITH CODEINE #3 TABLET PO PRN ×2 (12:01)
[2016-07-02] MEDS ORDERED: BENZOCAINE/MENTHOL AEROSOL SPRAY 56 ML TOP PRN (12:01)
[2016-07-02] MEDS ORDERED: ZOLPIDEM TARTRATE 5 MG TABLET PO PRN (12:01)
[2016-07-02] MEDS ORDERED: DIBUCAINE 1% OINTMENT 28 GM TP PRN (12:01)
[2016-07-02] MEDS ORDERED: IBUPROFEN 800 MG TABLET ONE (12:21)
[2016-07-02] MEDS ORDERED: ACETAMINOPHEN WITH CODEINE #3 TABLET ONE (13:28)
--- NOTE | 2016-07-02 14:37 | Admission Physical ---
Datetime Report Generated by CPN: 07/02/2016 14:36 CURRENT ADMISSION Chief Complaint: Uterine Contractions Admit Plan: Admit to Unit ALLERGIES Medication Allergies: Yes Medication Allergies: Penicillins (07/02/2016) Medication Allergies: Penicillins (01/04/2016) Latex: No Latex Allergies OBSTETRICAL HISTORY EDC: 07/04/2016 00:00 : 1 Para: 0 Term: 0 : 0 SAB: 0 IAB: 0 Ectopic: 0 Livin Cesareans: 0 VBACs: 0 Multiple Births: 0 Gestational Diabetes: No Rh Sensitization: No Incompetent Cervix: No ROSITA: No Infertility: No ART Treatment: No Uterine Anomaly: No IUGR: No Hx Previous C/S: No Macrosomia: No Hx Loss/Stillborn: No PIH: No Hx : No Placenta Previa/Abruption: No Depression/PP Depression: No PTL/PROM: No Post Hemorrhage: No Obstetrical History Comments: G1: current, hyperemesis, failed 1 hour gtt passed 3 hour SEE RECORDS Alcohol: No Marijuana : No Cocaine: No Other Illicit Drugs: No Cigarettes: Former Smoker. 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 Heart Disease: No Hosp/Surgery: No Autoimmune Disorder: No Anesthetic Complications: No Kidney Disease: No Abnormal Pap Smear: Yes Neuro/Epilepsy: No Psychiatric Disorders: No Other Medical Diseases: No Hepatitis/Liver Disease: No Significant Family History: No Varicosities/Phlebitis: No Trauma/Violence : No Thyroid Dysfunction: No Medical History Comments: abd pap and LEEP 2010 INFECTIOUS HISTORY Gonorrhea: No Genital Herpes: No Chlamydia: No Tuberculosis: No Syphilis: No Hepatitis: No HIV/AIDS Exposure: No Rash or Viral Illness: No HPV: No PHYSICAL EXAM General: Normal HEENT: Normal Neurologic: Normal Thyroid: Normal Heart: Normal Lungs: Normal Breast: Normal Back: Normal Abdomen: Normal Genitourinary Exam: Normal Extremities: Normal DTRs: Normal Pelvic Type: Adequate VAGINAL EXAM Dilatation: 6 Effacement: 90 Station: -1 MEMBRANES Membranes: Intact FETUS A EGA: 39.5 Monitoring: External US Accelerations: 15X15 Decelerations: None FHR Category: Category I Admit Comment: 26 yo admit for active labor EDC 07/04/16 EGA 39.5 Allergies:PCN pmhx- unremarkable abdomen nontender uterine ctxs 3-4 min fhts cat 1 120s +accels gbs prophylaxis with clindamycin pain management prn anticipate one dose of clindamycin 900 mg ivpb given, switch to vancomycin 1 gm ivpb q 12 hours poc reviewed with pt and family PLANS FOR LABOR AND DELIVERY Labor and Delivery: None Pain Management: None Feeding Preference: Breast Benefit of Breast Feed Discussed: Yes Circumcision: Yes INFORMED CONSENT Assignment: Bethany Jackson MD Signature: with User ID: Deena : with User ID: [email or web address]
[2016-07-02] MEDS: IBUPROFEN 800 MG TABLET PO SCH ×2 (15:32→21:10)
[2016-07-02] MEDS: FERROUS SULFATE 325 MG TABLET PO SCH (18:15)
[2016-07-02] MEDS: DOCUSATE SODIUM 100 MG CAPSULE PO SCH (18:16)
--- NOTE | 2016-07-02 19:00 | L&D Flow Sheet ---
LD Flowsheet Datetime Report Generated by CPN: 07/02/2016 19:00 Datetime: 07/02/2016 13:35 Stage of : Recovery (Inez Bellavance, RNC) Datetime: 07/02/2016 13:20 Stage of : Recovery (Inez Bellavance, RNC) Datetime: 07/02/2016 13:05 Stage of : Recovery (Inez Bellavance, RNC) Datetime: 07/02/2016 12:50 Stage of : Recovery (Inez Bellavance, RNC) Datetime: 07/02/2016 12:35 Stage of : Recovery (Inez Bellavance, RNC) Datetime: 07/02/2016 12:20 Stage of : Recovery (Inez Bellavance, RNC) Datetime: 07/02/2016 12:06 Stage of : Recovery (Inez Bellavance, RNC) Additional Nursing Comments: Delivery of placenta (Inez Bellavance, RNC) Datetime: 07/02/2016 12:03 Additional Nursing Comments: Delivery of viable male (Inez Bellavance, RNC) Datetime: 07/02/2016 12:00 Dilatation (cm): 10.0 (Inze Bellavance, RNC) Effacement (%): 100 (Inez Bellavance, RNC) Station: 2 (Inez Bellavance, RNC) Exam by: Alex Mendez RNC (Inez Bellavance, RNC) Membrane Status: Ruptured (Inez Bellavance, RNC) Membranes Ruptured Date/Time: 07/02/2016 12:00 (Inez Bellavance, RNC) Membranes Rupture Method: Spontaneous (Inez Bellavance, RNC) Amniotic Fluid Color: Clear (Inez Bellavance, RNC) Amniotic Fluid Amount: Small (Inez Bellavance, RNC) Amniotic Fluid Odor: Normal (Inez Bellavance, RNC) Vaginal Bleeding: None (Inez Bellavance, RNC) Datetime: 07/02/2016 11:38 NBP Sys/Kait/Mean (mmHg): 145 (QS system process) : 84 (QS system process) : 109 (QS system process) Pulse: 64 (QS system process) Respirations: 17 (Inez Bellavance, RNC) Monitor Mode: External (Inez Bellavance, RNC) Monitor Interventions for UA: [place] Adjusted (Inez Bellavance, RNC) Frequency (min): 4-6 (Inez Bellavance, RNC) Quality: Moderate to Strong (Inez Bellavance, RNC) Duration (sec): 50-60 (Inez Bellavance, RNC) Duration Criteria: Less than Two 120 Second Contractions (Inez Bellavance, RNC) Pattern: Normal: <= 5 Contractions in 10 Minutes (Inez Bellavance, RNC) Resting Tone (Palpate): Relaxed (Inez Bellavance, RNC) Monitor Mode: External US (Inez Bellavance, RNC) Monitor Interventions for FHR: Ultrasound Adjusted (Inez Bellavance, RNC) FHR Baseline Rate : 130 (Inez Bellavance, RNC) Variability: Moderate 6-25 bpm (Inez Bellavance, RNC) Accelerations: 15X15 (Inez Bellavance, RNC) Decelerations: None (Inez Bellavance, RNC) Pain Assessment Comments: doing well with breathing techniques (Inez Bellavance, RNC) Dilatation (cm): 9.0 (Inez Bellavance, RNC) Effacement (%): 100 (Inez Bellavance, RNC) Station: 0 (Inez Bellavance, RNC) Exam by: Alex Mendez RNC (Inez Bellavance, RNC) LaborFlag: Antepartum (QS system process) Datetime: 07/02/2016 10:40 NBP Sys/Kait/Mean (mmHg): 116 (QS system process) : 65 (QS system process) : 85 (QS system process) Pulse: 64 (QS system process) Respirations: 16 (Inez Bellavance, RNC) Monitor Mode: External (Inez Bellavance, RNC) Frequency (min): 4-5 (Inez Bellavance, RNC) Quality: Moderate to Strong (Inez Bellavance, RNC) Duration (sec): 50-60 (Inez Bellavance, RNC) Resting Tone (Palpate): Relaxed (Inez Bellavance, RNC) Monitor Mode: External US (Inez Bellavance, RNC) FHR Baseline Rate : 130 (Inez Bellavance, RNC) Variability: Moderate 6-25 bpm (Inez Bellavance, RNC) Accelerations: 15X15 (Inez Bellavance, RNC) Decelerations: None (Inez Bellavance, RNC) IV/Blood Work: IV Infusing per Order (Inez Bellavance, RNC) Patient Position/Activity: Semi-Fowlers (Inez Bellavance, RNC) Comfort Measures: Breathing/Relaxation; Coaching (Inez Bellavance, RNC) LaborFlag: Antepartum (QS system process) Datetime: 07/02/2016 10:14 Monitor Mode: External (Inez Bellavance, RNC) Frequency (min): 4-5 (Inez Bellavance, RNC) Quality: Moderate to Strong (Inez Bellavance, RNC) Duration (sec): 50-60 (Inez Bellavance, RNC) Resting Tone (Palpate): Relaxed (Inez Bellavance, RNC) Monitor Mode: External US (Inez Bellavance, RNC) FHR Baseline Rate : 130 (Inez Bellavance, RNC) Variability: Moderate 6-25 bpm (Inez Bellavance, RNC) Accelerations: 15X15 (Inez Bellavance, RNC) Decelerations: None (Inez Bellavance, RNC) IV/Blood Work: IV Infusing per Order (Inez Bellavance, RNC) Patient Position/Activity: Semi-Fowlers (Inez Bellavance, RNC) Comfort Measures: Breathing/Relaxation; Coaching (Inez Bellavance, RNC) Datetime: 07/02/2016 10:10 NBP Sys/Kait/Mean (mmHg): 118 (QS system process) : 70 (QS system process) : 88 (QS system process) Pulse: 60 (QS system process) Respirations: 18 (Inez Bellavance, RNC) LaborFlag: Antepartum (QS system process) Datetime: 07/02/2016 09:45 Monitor Mode: External (Inez Bellavance, RNC) Frequency (min): 4-5 (Inez Bellavance, RNC) Quality: Moderate to Strong (Inez Bellavance, RNC) Duration (sec): 50-60 (Inez Bellavance, RNC) Resting Tone (Palpate): Relaxed (Inez Bellavance, RNC) Monitor Mode: External US (Inez Bellavance, RNC) FHR Baseline Rate : 130 (Inez Bellavance, RNC) Variability: Moderate 6-25 bpm (Inez Bellavance, RNC) Accelerations: 15X15 (Inez Bellavance, RNC) Decelerations: None (Inez Bellavance, RNC) IV/Blood Work: IV Infusing per Order (Inez Bellavance, RNC) Patient Position/Activity: Semi-Fowlers (Inez Bellavance, RNC) Comfort Measures: Breathing/Relaxation; Coaching (Inez Bellavance, RNC) Datetime: 07/02/2016 09:40 NBP Sys/Kait/Mean (mmHg): 132 (QS system process) : 73 (QS system process) : 96 (QS system process) Pulse: 65 (QS system process) Respirations: 18 (Inez Bellavance, RNC) LaborFlag: Antepartum (QS system process) Datetime: 07/02/2016 09:36 I/O Interventions: Up to BR (Inez Bellavance, RNC) Datetime: 07/02/2016 09:15 Monitor Mode: External (Inez Bellavance, RNC) Frequency (min): 3-7 (Inez Bellavance, RNC) Quality: Moderate (Inez Bellavance, RNC) Duration (sec): 70-90 (Inez Bellavance, RNC) Resting Tone (Palpate): Relaxed (Inez Bellavance, RNC) Monitor Mode: External US (Inez Bellavance, RNC) FHR Baseline Rate : 135 (Inez Bellavance, RNC) Variability: Moderate 6-25 bpm (Inez Bellavance, RNC) Accelerations: 15X15 (Inez Bellavance, RNC) Decelerations: None (Inez Bellavance, RNC) Antibiotics: Other Antibiotic @ vanc (Inez Bellavance, RNC) IV/Blood Work: IV Infusing per Order (Inez Bellavance, RNC) Patient Position/Activity: Semi-Fowlers (Inez Bellavance, RNC) Datetime: 07/02/2016 09:10 NBP Sys/Kait/Mean (mmHg): 128 (QS system process) : 80 (QS system process) : 99 (QS system process) Pulse: 64 (QS system process) Respirations: 16 (Inez Bellavance, RNC) LaborFlag: Antepartum (QS system process) Datetime: 07/02/2016 08:45 Monitor Mode: External (Inez Bellavance, RNC) Frequency (min): 5-7 (Inez Bellavance, RNC) Quality: Moderate (Inez Bellavance, RNC) Duration (sec): 50-70 (Inez Bellavance, RNC) Resting Tone (Palpate): Relaxed (Inez Bellavance, RNC) Monitor Mode: External US (Inez Bellavance, RNC) FHR Baseline Rate : 125 (Inez Bellavance, RNC) Variability: Moderate 6-25 bpm (Inez Bellavance, RNC) Accelerations: 15X15 (Inez Bellavance, RNC) Decelerations: None (Inez Bellavance, RNC) Pain Presence: Intermittent (Inez Bellavance, RNC) Pain Type: Cramping (Inez Bellavance, RNC) Pain Location: Abdomen; Back (Inez Bellavance, RNC) Pain Relief Measures: Comfort Measures (Inez Bellavance, RNC) Pain Coping: Breathing Through Contractions (Inez Castroe, RNC) IV/Blood Work: IV Started; IV Bolus Started; Labs Drawn; IV Infusing per Order; New IV Bag Hung (Inez Castroe, RNC) Patient Position/Activity: High Fowlers (Inez Bellavance, RNC) Comfort Measures: Breathing/Relaxation (Inez Gonzaleznce, RNC) I/O Interventions: Clear Liquids Given (Inez Bellmartance, RNC) LaborFlag: Antepartum (QS system process) Datetime: 07/02/2016 08:40 NBP Sys/Kait/Mean (mmHg): 131 (QS system process) : 86 (QS system process) : 104 (QS system process) Pulse: 69 (QS system process) Respirations: 16 (Inez Bellavance, RNC) LaborFlag: Antepartum (QS system process) Datetime: 07/02/2016 08:17 Frequency (min): 5-7 (Inez Bellavance, RNC) Pain Scale: 5 (Inez Mendez, RNC) Pain Presence: Intermittent (Inez Mendez, RNC) Pain Type: Cramping (Inez Mendez, RNC) Pain Location: Abdomen; Back (Inez Mendez, RNC) Pain Goal: 3 (Inez Mendez, RNC) Pain Relief Measures: Comfort Measures (Inez Mendez, RNC) Pain Coping: Talking Through Contractions (Annotations: plans natural) (Inez Mendez, RNC) Dilatation (cm): 6.0 (Inez Mendez, RNC) Effacement (%): 90 (Inez Mendez, RNC) Station: -1 (Inez Mendez, RNC) Exam by: Alex Mendez RNC (Inez Mendez, RNC) Membrane Status: Intact (Inez Mendez, RNC) Level of Consciousness: Fully Conscious (Inez Mendez, RNC) DTR's/Clonus: DTRs 2+; No Clonus (Inez Mendez, RNC) Headache: Denies (Inez Mendez, RNC) Breath Sounds, Left: Clear and Equal (Inez Mendez, RNC) Breath Sounds, Right: Clear and Equal (Inez Mendez, RNC) Nausea/Vomiting: Denies (Inez Mendez, RNC) RUQ Epigastric Pain: Denies (Inez Mendez, RNC) Antibiotics: Clindamycin IV 900 mg (Inez Mendez, RNC) Patient Position/Activity: Semi-Fowlers (Inez Mendez, RNC) Comfort Measures: Hot/Cold Pack (Inez Mendez, RNC) LaborFlag: Antepartum (QS system process) Datetime: 07/02/2016 08:00 NBP Sys/Kait/Mean (mmHg): 132 (QS system process) : 78 (QS system process) : 100 (QS system process) Pulse: 67 (QS system process) Respirations: 18 (Inez Bellavance, RNC) Temperature (F): 98.7 (Inez Bellavance, RNC) Temperature (C): 37.1 (QS system process) Temperature Route: Oral (Inez Bellavance, RNC) LaborFlag: Antepartum (QS system process)
[2016-07-02] MEDS ORDERED: VANCOMYCIN HCL 1,000 MG in DEXTROSE 5%-WATER 250 ML IV SCH (22:00)
--- NOTE | 2016-07-03 06:00 | L&D Current Admission ---
Current Admit Datetime Report Generated by CPN: 07/03/2016 06:00 ADMISSION INFORMATION Reason for Admission: Onset of Labor (07/02/2016 08:15:Inez Mendez RNC) Chief Complaint: Contractions (07/02/2016 08:17:Inez Gloriae, RNC) Method of Arrival: Wheelchair (07/02/2016 08:15:Inez Mendez RNC) Reason for Induction: Not Applicable (07/02/2016 08:15:Inez Sirenaavance, RNC) Records Available: Yes (07/02/2016 08:15:Inez Gloriae, RNC) General Admission Information: Reviewed (07/02/2016 08:15:Inez Mendez, RNC) General Admission Reviewed By: Alex Mendez RN (07/02/2016 08:15:Inez Gloriae, RNC) BELONGINGS/ADVANCED DIRECTIVES Valuables/Personal Effects: None (07/02/2016 08:15:DAVIN Lowe) Disposition of Belongings: Kept with Patient (07/02/2016 08:15:DAVIN Lowe) Advance Direct for Healthcare: No, and Wants No Information (07/02/2016 08:15:DAVIN Lowe) Durable Power of Central Station Operator: No (07/02/2016 08:15:DAVIN Lowe) Living Will: No (07/02/2016 08:15:DAVIN Lowe) Pt Rights Information Given: Yes (07/02/2016 08:15:DAVIN Lowe) Pt Understands Pt Rights: Yes (07/02/2016 08:15:DAVIN Lowe) LEARNING ASSESSMENT Knowledge Level: Understands L_D Process; Understands Care Activities; Understands Diagnosis (07/02/2016 08:15:ADVIN Lowe) Barriers to Learning: Visual Deficit (07/02/2016 08:15:DAVIN Lowe) Learning Readiness: Motivated (07/02/2016 08:15:Inez Bellavance, RNC) Learns Best By: 1 to 1 Instruction; Reading; Videos; Group Discussion; Demonstration (07/02/2016 08:15:Inezsybil Castroe, RNC) Learning Needs: Labor and Delivery Process; Pain Management; Symptoms to Report; Treatment Plan; Medication; Diagnosis; Nutrition; Equipment; Care; Community Resources (07/02/2016 08:15:Inez Bellavance, RNC) DOMESTIC VIOLANCE SCREENING Dom Viol Threatened/Hurt: No (07/02/2016 08:15:Inez Bellavance, RNC) Hx of Abuse/Neglect past 2yrs: No (07/02/2016 08:15:Inez Bellavance, RNC) Feel Unsafe Going Home: No (07/02/2016 08:15:Inez Bellavance, RNC) Considered Personal Harm/Suicide: No (07/02/2016 08:15:Inez Bellavance, RNC) NUTRITIONAL/FUNCTIONAL SCREENING Problem with Appetite >5 Days: No (07/02/2016 08:15:Inez Bellavance, RNC) Chew/Swallow Difficulties: No (07/02/2016 08:15:DAVIN Lowe) Inappropriate Wt Gain/Loss: No (07/02/2016 08:15:DAVIN Lowe) Presence Skin Breakdown/Ulcer: No (07/02/2016 08:15:DAVIN Lowe) Special Diet: No (07/02/2016 08:15:DAVIN Lowe) Pt Requests Line Up Examiner Visit: No (07/02/2016 08:15:DAVIN Lowe) Hx of Any of the Following?: N/A (07/02/2016 08:15:DAVIN Lowe) New Diagnosis of: N/A (07/02/2016 08:15:DAVIN Lowe) Requires Assist w/Ambulation: No (07/02/2016 08:15:DAVIN Lowe) Uses Assist Device to Ambulate: No (07/02/2016 08:15:DAVIN Lowe) Pt Requires Help w/ADL's: No (07/02/2016 08:15:DAVIN Lowe)
--- NOTE | 2016-07-03 06:00 | L&D General Admission ---
General Admit Datetime Report Generated by CPN: 07/03/2016 06:00 INFORMATION Patient Age: 26 (05/30/2016 16:29:QS system process) EDC: 07/04/2016 00:00 (07/02/2016 01:34:Christie Rodriguez RN) : 1 (07/02/2016 01:34:Christie Rodriguez RN) Para: 0 (07/02/2016 01:34:Christie Rdoriguez RN) Term: 0 (07/02/2016 01:34:Christie Rodriguez RN) : 0 (07/02/2016 01:34:Christie Rodriguez RN) Spontaneous Abortions: 0 (07/02/2016 01:34:Christie Rodriguez RN) Induced Abortions: 0 (07/02/2016 01:34:Christie Rodriguez RN) Livin (07/02/2016 01:34:Christie Rodriguez RN) Cesareans: 0 (07/02/2016 01:34:Christie Rodriguez RN) VBACs: 0 (07/02/2016 01:34:Christie Rodriguez RN) Ectopic: 0 (07/02/2016 01:34:Christie Rodriguez RN) Multiple Births: 0 (07/02/2016 01:34:Christie Rodriguez RN) Baby, Number in Womb: 1 (07/02/2016 01:34:Christie Rodriguez RN) CARE Primary Rack Loader: [facility] (07/02/2016 01:34:Christie Rodriguez RN) Month of 1st Visit: October (07/02/2016 01:34:Christie Rodriguez RN) Adequate Care: Yes (07/02/2016 01:34:Christie Rodriguez RN) Prepregnancy Weight (lb): 111 (07/02/2016 01:34:Christie Rodriguez RN) Prepregnancy Weight (kg): 50.5 (07/02/2016 01:34:QS system process) Height (in): 65 (07/02/2016 02:14:QS system process) ALLERGIES Medication Allergy: Yes (07/02/2016 01:34:Christie Rodriguez RN) Medication Allergies: Penicillins (07/02/2016) (07/02/2016 02:14:QS system process) Latex Allergy: No Latex Allergies (07/02/2016 01:34:Christie Rodriguez RN) COMMUNICATION Primary Language: French (07/02/2016 01:34:Christie Rodriguez RN) Medical Tx Preferred Language: French (07/02/2016 01:34:Christie Rodriguez RN) Communication Barrier(s): None (07/02/2016 01:34:Isabelle Yap RN) DEMOGRAPHICS Address: [place] [address] (05/30/2016 16:29:QS system process) Zipcode: [address] (05/30/2016 16:29:QS system process) Home (05/30/2016 16:29:QS system process) Work (07/02/2016 07:46:QS system process) SSN: [id number] (05/30/2016 16:29:QS system process) Next of Kin Name: ABEL HELMS (05/30/2016 16:29:QS system process) Next of Kin (05/30/2016 16:29:QS system process) Next of Kin Relationship: SPO (05/30/2016 16:29:QS system process) Date of : 1990 (05/30/2016 16:29:QS system process) Marital Status: (05/30/2016 16:29:QS system process) Sex: Female (05/30/2016 16:29:QS system process) Race: (05/30/2016 16:29:QS system process) Ethnicity: Non- or (05/30/2016 16:29:QS system process) Mosque: None (05/30/2016 16:29:QS system process) DRUG AND ALCOHOL USE Alcohol: No (07/02/2016 01:34:Christie Rodriguez RN) Cigarettes: Former Smoker. [id number] (07/02/2016 01:34:Christie Rodriguez RN) Marijuana: No (07/02/2016 01:34:Christie Rodriguez RN) Cocaine: No (07/02/2016 01:34:Christie Rodriguez RN) Other Illicit Drugs: No (07/02/2016 01:34:Christie Rodriguez RN) VACCINE HISTORY Influenza Vaccine: No (07/02/2016 01:34:Christie Rodriguez RN) Pneumococcal Vaccine: No (07/02/2016 01:34:Christie Rodriguez RN) Tetanus Vaccine: Yes (07/02/2016 01:34:Christie Rodriguez RN) Tdap Vaccine: Yes (07/02/2016 01:34:Christie Rodriguez RN) Hepatitis B Vaccine: Yes (07/02/2016 01:34:Christie Rodriguez RN) Pole Cutter: [facility] (07/02/2016 01:34:Svetlana Langston RN) Feeding Preference: Breast (07/02/2016 01:34:Christie Rodriguez RN) Benefit of Breast Feed Discussed: Yes (07/02/2016 01:34:Christie Rodriguez RN) Circumcision: Yes (07/02/2016 01:34:Christie Rodriguez RN) Classes Attended: Yes (07/02/2016 01:34:Christie Rodriguez RN) Tubal Ligation: No (07/02/2016 01:34:Christie Rodriguez RN) Tubal Authorization Signed: N/A (07/02/2016 01:34:Christie Rodriguez RN) Consent: N/A (07/02/2016 01:34:Christie Rodriguez RN) Consent Signed: N/A (07/02/2016 01:34:Christie Rodriguez RN) Pain Management Plans: None (07/02/2016 01:34:Christie Rodriguez RN) Plans for Labor and Delivery: None (07/02/2016 01:34:Christie Rodriguez RN) Support Person: Abel (07/02/2016 01:34:Christie Rodriguez RN) Support Person Relationship: (07/02/2016 01:34:Christie Rodriguez RN) Cultural/Spritual Practice: No (07/02/2016 01:34:Christie Rodriguez RN) Spir/Cult Dietary Needs: No (07/02/2016 01:34:Christie Rodriguez RN) LIVING SITUATION/DISCHARGE PLAN Living Arrangements: House (07/02/2016 01:34:Christie Rodriguez RN) Adequate Access to:: Electric; Heat; Refrigeration; Plumbing/Running water; Phone; Transportation (07/02/2016 01:34:Christie Rodriguez RN) WIC Program: No (07/02/2016 01:34:Christie Rodriguez RN) Discharge Sales & Service Associate Person: Abel (07/02/2016 01:34:Christie Rodriguez RN) Person to Help after Discharge: Abel (07/02/2016 01:34:Christie Rodriguez RN) Currently Using Commun Resources: No (07/02/2016 01:34:Christie Rodriguez RN) Car Seat for Discharge: Yes (07/02/2016 01:34:Christie Rodriguez RN) Adoption Requested: No (07/02/2016 01:34:Christie Rodriguez RN) Pt Contact w/ Post : N/A (07/02/2016 01:34:Christie Rodriguez RN) LABS Blood Type: A Positive (07/02/2016 01:34:Christie Rodriguez RN) Antibody Screen: negative (07/02/2016 01:34:Christie Rodriguez RN) Hemoglobin: 12.6 (07/02/2016 08:19:QS system process) Hematocrit: 35.6 L (07/02/2016 08:19:QS system process) MCV: 81 (07/02/2016 08:19:QS system process) Group Beta Strep: positive (07/02/2016 01:34:Christie Rodriguez RN) Gonorrhea: Negative (07/02/2016 01:34:Christie Rodriguez RN) Chlamydia: Negative (07/02/2016 01:34:Christie Rodriguez RN) RPR/VDRL: Nonreactive (07/02/2016 01:34:Christie Rodriguez RN) Hepatitis B: Negative (07/02/2016 01:34:Christie Rodriguez RN) Rubella: Immune (07/02/2016 01:34:Christie Rodriguez RN) OB/PREVIOUS HISTORY History of Previous : No (07/02/2016 01:34:Christie Rodriguez RN) History of Gestational Diabetes: No (07/02/2016 01:34:Christie Rodriguez RN) History of PIH: No (07/02/2016 01:34:Christie Rodriguez RN) History of Incompetent Cervix: No (07/02/2016 01:34:Christie Rodriguez RN) History of Placenta Previa/Abrup: No (07/02/2016 01:34:Christie Rodriguez RN) History of Macrosomia: No (07/02/2016 01:34:Christie Rodriguez RN) History of IUGR: No (07/02/2016 01:34:Christie Rodriguez RN) History of Hemorrhage: No (07/02/2016 01:34:Christie Rodriguez RN) History of Loss/Stillborn: No (07/02/2016 01:34:Christie Rodriguez RN) History of : No (07/02/2016 01:34:Christie Rodriguez RN) History of D (Rh) Sensitization: No (07/02/2016 01:34:Christie Rodriguez RN) History Recurrent Loss/Stillborn: No (07/02/2016 01:34:Christie Rodriguez RN) History Depression/PP Depression: No (07/02/2016 01:34:Christie Rodriguez RN) History of Uterine Anomaly/ROSITA: No (07/02/2016 01:34:Christie Rodriguez RN) History of Infertility: No (07/02/2016 01:34:Christie Rodriguez RN) History of ART Treatment: No (07/02/2016 01:34:Christie Rodriguez RN) History of ROSITA: No (07/02/2016 01:34:Christie Rodriguez RN) Comments Obstetrical History: G1: current, hyperemesis, failed 1 hour gtt passed 3 hour (07/02/2016 01:34:Christie Rodriguez RN) MEDICAL HISTORY Med Hx Diabetes: No (07/02/2016 01:34:Christie Rodriguez RN) Med Hx Hypertension: No (07/02/2016 01:34:Christie Rodriguez RN) Med Hx Heart Disease: No (07/02/2016 01:34:Christie Rodriguez RN) Med Hx Autoimmune Disorder: No (07/02/2016 01:34:Christie Rodriguez RN) Med Hx Kidney Disease/UTI: No (07/02/2016 01:34:Christie Rodriguez RN) Med Hx Neurologic/Epilepsy: No (07/02/2016 01:34:Christie Rodriguez RN) Med Hx Psychiatric Disorders: No (07/02/2016 01:34:Christie Rodriguez RN) Med Hx Hepatitis/Liver Disease: No (07/02/2016 01:34:Christie Rodriguez RN) Med Hx Varicosities/Phlebitis: No (07/02/2016 01:34:Christie Rodriguez RN) Med Hx Thyroid Dysfunction: No (07/02/2016 01:34:Christie Rodriguez RN) Med Hx Trauma/Violence: No (07/02/2016 01:34:Christie Rodriguez RN) Med Hx Blood Transfusion: No (07/02/2016 01:34:Christie Rodriguez RN) Med Hx Pulmonary (Asthma,TB): No (07/02/2016 01:34:Chritsie Rodriguez RN) Med Hx Breast: No (07/02/2016 01:34:Christie Rodriguez RN) Med Hx 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 (07/02/2016 01:34:Christie Rodriguez RN) Med Hx Hospitalization/Surgery: No (07/02/2016 01:34:Christie Rodriguez RN) Med Hx Anesthetic Complications: No (07/02/2016 01:34:Christie Rodriguez RN) Med Hx Abnormal Pap Smear: Yes (07/02/2016 01:34:Christie Rodriguez RN) Other Medical Diseases: No (07/02/2016 01:34:Christie Rodriguez RN) Med Hx Significant Family Hx: No (07/02/2016 01:34:Christie Rodriguez RN) Details of Med/Surg Hx: abd pap and LEEP 2010 (07/02/2016 01:34:Christie Rodriguez RN) INFECTIOUS HISTORY Inf Hx Gonorrhea: No (07/02/2016 01:34:Christie Rodriguez RN) Inf Hx Chlamydia: No (07/02/2016 01:34:Christie Rodriguez RN) Inf Hx Syphilis: No (07/02/2016 01:34:Christie Rodriguez RN) Inf Hx HIV/AIDS: No (07/02/2016 01:34:Christie Rodriguez RN) Inf Hx Human Papilloma Virus: No (07/02/2016 01:34:Christie Rodriguez RN) Inf Hx Pt/Partner Genital Herpes: No (07/02/2016 01:34:Christie Rodriguez RN) Inf Hx Tuberculosis/Exposure: No (07/02/2016 01:34:Christie Rodriguez RN) Inf Hx Hepatitis B,C: No (07/02/2016 01:34:Christie Rodriguez RN) Inf Hx Rash or Viral Illness: No (07/02/2016 01:34:Christie Rodriguez RN) GENETIC HISTORY Gen Hx Age >=35 at CHIN: No (07/02/2016 01:34:Christie Rodriguez RN) Gen Hx Thalassemia: No (07/02/2016 01:34:Christie Rodriguez RN) Gen Hx Congenital Heart Defect: No (07/02/2016 01:34:Christie Rodriguez RN) Gen Hx Neural Tube Defect: No (07/02/2016 01:34:Christie Rodriguez RN) Gen Hx Down's Syndrome: No (07/02/2016 01:34:Christie Rodriguez RN) Gen Hx Luis-Sachs: No (07/02/2016 01:34:Christie Rodriguez RN) Gen Hx Amadou: No (07/02/2016 01:34:Christie Rodriguez RN) Gen Hx Familial Dysautonomia: No (07/02/2016 01:34:Christie Rodriguez RN) Gen Hx Sickle Cell Disease/Trait: Yes (07/02/2016 01:34:Christie Rodriguez RN) Gen Hx Hemophilia/Blood Disorder: No (07/02/2016 01:34:Christie Rodriguez RN) Gen Hx Muscular Dystrophy: No (07/02/2016 01:34:Christie Rodriguez RN) Gen Hx Cystic Fibrosis: No (07/02/2016 01:34:Christie Rodriguez RN) Gen Hx [place] Chorea: No (07/02/2016 01:34:Christie Rodriguez RN) Gen Hx Mental Retardation/Autism: No (07/02/2016 01:34:Christie Rodriguez RN) Gen Hx Tested for Fragile X: No (07/02/2016 01:34:Christie Rodriguez RN) Gen Hx Other Inher/Chromosomal: No (07/02/2016 01:34:Christie Rodriguez RN) Gen Hx Maternal Metabolic DO: No (07/02/2016 01:34:Christie Rodriguez RN) Gen Hx Pt Father or FOB Defect: No (07/02/2016 01:34:Christie Rodriguez RN) Gen Hx Other Genetic History: No (07/02/2016 01:34:Christie Rodriguez RN) Gen Hx Drugs/Meds since LMP: Yes (07/02/2016 01:34:Christie Rodriguez RN) Gen Hx Medications: pnv, zofran (07/02/2016 01:34:Christie Rodriguez RN) Details of Genetic History: pt has sickle cell trait, pt brothers have sickle cell; FOB negative (07/02/2016 01:34:Christie Rodriguez RN)
[2016-07-03] MEDS: IBUPROFEN 800 MG TABLET PO SCH ×3 (06:10→21:16)
--- NOTE | 2016-07-03 06:15 | L&D Care Plan ---
LD CARE PLANS Datetime Report Generated by CPN: 07/03/2016 06:15 Datetime: 07/02/2016 08:26 Pain State: Actual (Twyla Camp, RNC) Related To: Labor and Delivery Process; Treatment and Procedures (Twyla Camp, RNC) Goal(s): Patients Pain will be Assessed and Managed; Patient will Verbalize Adequate Relief of Pain or the Ability to [place] with Current Pain (Twyla Camp, RNC) Interventions: Assess Pain Severity on Scale of 0 (None) to 5 (Severe); Assess Type, Location and Intensity of Pain Each Time Client Reports Discomfort and Notify Provider if Unusal Pain Develops; Encourage Proper Breathing and Relaxation Techniques; Offer Alternatives Such as Repositioning, Calm Environment, Massages, Diversional Activities, Ice Pack, Splinting, and Ambulation; Administer Analgesics as Ordered; Assist with Epidural Placement as Appropriate; Evaluate Therapeutic Effectiveness of Medication and Treatments (Twyla Bower, DAVIN) Outcome: Patient will Report Absence or Relief of Pain Consistent with Established Pain Goal (DAVIN Otero) Status: Ongoing (DAVIN Otero) Outcome: Patient will have a Decrease in Signs and Symptoms of Discomfort (Twyla Bower, RNC) Status: Ongoing (Twyla Bower, DAVIN) Outcome: Pain will be Controlled During Procedures (DAVIN Otero) Status: Ongoing (DAVIN Otero) Anxiety Related To: Labor and Delivery Process; Situational Crisis; Medical Interventions; Significant Life Event (ADVIN Otero) Goal(s): Patient will have Decreased Anxiety and be able to Function at Acceptable Levels (Twyla Bower, DAVIN) Interventions: Assess Verbal and Nonverbal Behavioral Indicators of Anxiety; Assist Patient to Identify and Verbalize Symptoms of Anxiety; Identify and Demonstrate Techniques to Control Anxiety; Assist Patient with Coping Mechanisms to Manage Anxiety; Provide Theraputic Touch for the Patient; Explain to Patient, Using a Calm Reassuring Approach and Nonmedical Terms, All Activities, Procedures, and Concerns; Instruct Patient and Family about Post Discharge Care, Limitations, Symptoms to Report and Resources Available (Twyla Bower, DAVIN) Outcome: Patient will Identify, Verbalize and Demonstrate Techniques to Control Anxiety (DAVIN Otero) Status: Ongoing (DAVIN Otero) Outcome: Patient's Posture, Facial Expressions, Gestures and Activity Level will Reflect Decreased Anxiety ([facility], [facility]) Status: Ongoing ([facility], [facility]) Outcome: Patient will Verbalize a Sense of Control and/or Acceptance of the Situation ([facility], RN) Status: Ongoing ([facility], RN) Outcome: Patient will Identify and Utilize Support Person ([facility], [facility]) Status: Ongoing ([facility], [facility]) Infection State: Risk For ([facility], [facility]) Related To: Prolonged Labor or Induction; Invasive Procedures ([facility], [facility]) Goal(s): The Patient will be Free of Infection, Vital Signs Stable and Lab Work within Normal Parameters ([facility], [facility]) Interventions: Instruct and Reinforce Proper Handwashing, Hygiene, and Care Techniques to Patient and Family; Monitor Vital Signs; Monitor Patient for the Following Signs of Infection: Fever, Abdominal Tenderness, Unusual Discharge; Monitor Aminiotic Fluid, Urine and Lochia for Color and Odor; Observe Wounds, Incisions and Invasive Line Sites for Redness, Drainage and Edema; Assess IV Sites per Hospital Policy; Monitor Lab and Test Results and Notify Provider of Abnormal Findings; Assess Nutritional Status and Promote Good Nutrition ([facility], [facility]) Outcome: Patient will Remain Free of Infection ([facility], RN) Status: Ongoing ([facility], [facility]) Outcome: Infection will be Recognized Early to Allow for Prompt Treatment ([facility], [facility]) Status: Ongoing ([facility], [facility]) Outcome: Patient will have Vital Signs Within Expected Range ([facility], RN) Status: Ongoing ([facility], [facility]) Fluid Volume State: Risk For (Twyla Camp, RNC) Related To: Prolonged Labor or Induction (Twyla Camp, RNC) Goal(s): Patient will Achieve and Maintain a Balanced Fluid Volume Status; Hemodynamically Stable (Twyla Camp, RNC) Interventions: Monitor Vital Signs; Auscultate Breath Sounds; Monitor Patient for Skin Turgor, Mucous Membranes, Dry Skin, Weakness, Headaches and Confusion; Provide Oral Fluids as Ordered; Initiate and Maintain Intravenous Fluids as Ordered; Monitor Intake and Output as Indicated Per Patient Status; Accurately Measure Blood Loss; Monitor Lab and Test Results as Obtained and Notify Provider of Abnormal Findings; Monitor Patient's Weight (Twyla Camp, RNC) Outcome: Patient will have Clear Lung Sounds (Twyla Camp, RNC) Status: Ongoing (Twyla Camp, RNC) Outcome: Patient will have Vital Signs within Expected Range (Twyla Camp, RNC) Status: Ongoing (Twyla Camp, RNC) Outcome: Urine Output will be within Expected Range (Twyla Camp, RNC) Status: Ongoing (Twyla Camp, RNC) Outcome: Patient will have Minimal Generalized or Upper Extremity Edema (Twyla Camp, RNC) Status: Ongoing (Twyla Camp, RNC) Injury State: Risk For (DAVIN Otero) Related To: Labor and Delivery Process (DAVIN Otero) Goal(s): Patient will Remain Free from Injury (DAVIN Otero) Interventions: Monitoring as per Hospital Protocol; Assess Neurological Status; Perform Risk Assessment of Patients with Induction and ; Perform Fall Risk Assessment and Prevention per Hospital Protocol; Perform DVT Risk Assessment and Prophylaxis per Hospital Protocol; Ensure that Oxygen, Suction, and Resuscitation Medications and Equipment are Readily Available; Confirm Patient ID Prior to Procedure(s) and Medication Administration per Hospital Policy (DAVIN Otero) Outcome: Successful Fall Risk Prevention (DAVIN Otero) Status: Ongoing (DAVIN Otero) Outcome: Patient will Deliver Infant without Adverse Sequela (DAVIN Otero) Status: Ongoing (Twyla Bower RNC) Outcome: Patient's Neurological Status will Remain Stable (DAVIN Otero) Status: Ongoing (Twyla Bower, ADOLPHC) Impaired Skin Integrity State: Risk For (DAVIN Otero) Related To: Vaginal Delivery; Invasive Procedures (DAVIN Otero) Goal(s): Patient will Maintain Optimal Skin Integrity, Free of Breakdown, Injury or Infection (DAVIN Otero) Interventions: Complete Screening for Pressure Ulcer Risk and Initiate Protocol per Hospital Policy; Monitor Site of Skin Impairment for Color Changes, Redness, Swelling, Warmth, Pain or Other Signs of Infection; Encourage and Assist with Position Changes; Monitor Patient's Mobility Status; Provide Adequate Nutrition and Fluids; Teach Patient Appropriate Hygienic Care; Teach Patient/Family Skin Care Management (DAVIN Otero) Outcome: Patient will not have Evidence of Injury Such as Skin Breakdown, Scrapes, Cuts, or Bruising (Twyla Bower, ADOLPHC) Status: Ongoing (Twyla Bower, RNC) Outcome: Patient will Report Any Altered Sensation or Pain at Site of Skin Impairment (Twyla Bower, RNC) Status: Ongoing (Twyla Bower, RNC) Outcome: Patients Incisions and Wounds will be without Signs or Symptoms of Infection (Twyla Bower, RNC) Status: Ongoing (Twyla Bower, RNC) Outcome: Patient will Demonstrate Understanding of Plan to Heal Skin and Prevent Reinjury and Verbalize Risk Factors (Twyla Bower, RNC) Status: Ongoing (Twyla Bower, RNC) Nutrition State: Actual (Twyla Bower, DAVIN) Related To: ; (Twyla Bower, DAVIN) Goal(s): Patient will have an Intake of Nutrients Sufficient to Meet Metabolic Needs (Twyla Bower, DAVIN) Interventions: Nutritional Screening and Assessment per Hospital Policy; Consult Shop Helper for Further Assessment and Recommendations Regarding Food Preferences and Nutritional Support; Allow Patient to Plan and Order Diet when Possible; Monitor Laboratory Values That Indicate Nutritional Well-being; Consult Process Area Supervisor for Nutritional Support Regarding Requirements; Document Actual Weight Initially and Weekly (Do Not Estimate); Encourage Patient Participation in Maintaining a Food Log as Indicated; Educate Patient on the Importance of Maintaining an Adequate Caloric Intake (Twyla Bower, DAVIN) Outcome: Patient will Receive Adequate Calories and Fluid Volume to Meet Metabolic Needs (DAVIN Otero) Status: Ongoing (Twyla Bower, RNJoe) Outcome: Patient will Select Foods or Meals that Support Adequate Nutrition (Twyla Bower, DAVIN) Status: Ongoing (Twyla Bower, RNC)
[2016-07-03 07:40] LABS: HEMATOCRIT 34.7 % (36.0-47.0); HEMOGLOBIN 12.3 g/dL (12.0-15.5); HGB HCT DIFFERENCE 2.2; MEAN CORPUSCULAR HEMOGLOBIN 28.7 pg (27.0-33.4); MEAN CORPUSCULAR HGB CONC 35.4 g/dL (32.0-36.0); MEAN CORPUSCULAR VOLUME 81 fl (80-97); RED BLOOD COUNT 4.29 10^6/uL (3.72-5.28); RED CELL DISTRIBUTION WIDTH 14.2 % (11.5-14.0); WHITE BLOOD COUNT 9.8 10^3/uL (4.0-10.5)
[2016-07-03] MEDS: PRENATAL VITAMIN W-O CA NO5/FE FUMARATE/FA CAPSULE PO SCH (09:54)
[2016-07-03] MEDS: FERROUS SULFATE 325 MG TABLET PO SCH ×2 (09:54→18:30)
[2016-07-03] MEDS: DOCUSATE SODIUM 100 MG CAPSULE PO SCH ×2 (09:54→18:30)
[2016-07-03] MEDS: SENNOSIDES/DOCUSATE 8.6-50 MG 1 EACH TABLET PO SCH (09:54)
--- NOTE | 2016-07-03 10:28 | PDOC PROGRESS REPORT ---
Subjective-OB Subjective: Post Delivery Day: 26 year old. Denies any needs at this time Physical Exam (OB) Vital Signs: Temp Pulse Resp BP Pulse Ox 98.0 F 72 17 114/61 98 07/03/16 09:45 07/03/16 09:45 07/03/16 09:45 07/03/16 09:45 07/03/16 09:45 Intake & Output 07/02/16 07/03/16 07/04/16 06:59 06:59 06:59 Weight 60.85 kg - Lochia Lochia Amount: Small 10-25 ml Lochia Color: Rubra/Red - Abdomen Description: Soft, Round Hernia Present: No Bowel Sounds: Normoactive Flatus Presence: Present Stool: No Fundal Description: Firm, Midline Fundal Height: u/u - u/2 Abdomen Note: Several small, nontender firm small masses felt in abdomen-? if intestinal. Objective-Diagnostic Laboratory: 07/03/16 07:15 07/02/16 07/03/16 08:19 07:15 WBC 9.8 RBC 4.29 Hgb 12.3 Hct 34.7 L MCV 81 MCH 28.7 MCHC 35.4 RDW 14.2 H Plt Count 143 L Blood Type A POSITIVE Antibody Screen NEGATIVE
[2016-07-04] MEDS: IBUPROFEN 800 MG TABLET PO SCH ×2 (05:04→13:57)
--- NOTE | 2016-07-04 09:47 | PDOC DISCHARGE SUMMARY ---
Final Diagnosis Discharge Date: 07/04/16 - Final Diagnosis (1) Delivery normal Is this a current diagnosis for this admission?: Yes Discharge Data - Discharge Medication Home Medications: No Home Medications 07/02/16 Reason(s) for Admission: Onset of Labor Procedures: NST Intrapartum Procedure(s): Spontaneous Vaginal Delivery Complication(s): Laceration-Labial Laceration-Degree: 1st - Diagnosis Test Laboratory: Temp Pulse Resp BP Pulse Ox 98.3 F 81 18 126/80 H 99 07/04/16 07:58 07/04/16 07:58 07/04/16 07:58 07/04/16 07:58 07/04/16 07:58 07/02/16 07/02/16 07/03/16 08:00 08:19 07:15 RBC 4.42 4.29 Hgb 12.6 12.3 Hct 35.6 L 34.7 L Urine Opiates Screen NEGATIVE - Discharge information/Instructions Discharge Activity: Activity As Tolerated, Balance Activity w/Rest, Keep Legs Elevated, No Lifting Over 10 Pounds, Pelvic Rest, Slowly Increase Activity, No tub bath, Walk Frequently Discharge Diet: Regular Disposition: HOME, SELF-CARE Follow up with: [facility] in: 4, Weeks
[2016-07-04] MEDS: PRENATAL VITAMIN W-O CA NO5/FE FUMARATE/FA CAPSULE PO SCH (10:52)
[2016-07-04] MEDS: FERROUS SULFATE 325 MG TABLET PO SCH (10:53)
[2016-07-04] MEDS: SENNOSIDES/DOCUSATE 8.6-50 MG 1 EACH TABLET PO SCH (10:53)
[2016-07-04] MEDS: DOCUSATE SODIUM 100 MG CAPSULE PO SCH (10:53)
[2016-07-04 13:06] VITALS: BP 125/74
--- NOTE | 2016-07-05 15:43 | Delivery Summary ---
Del Sum A-C Datetime Report Generated by CPN: 07/05/2016 15:42 DELIVERY PERSONNEL DELIVERY PERSONNEL: [phone] Delivery Doctor:: Rachid Caicedo CNM Labor and Delivery Nurse:: DAVIN Lowe Fitness Supervisor/CHICK SEXER: [facility] Fitness Supervisor/CHICK SEXER: Arline Lee, PROTEIN SCIENTIST MATERNAL INFORMATION Delivery Anesthesia: None Medications After Delivery: Pitocin Bolus-Please Comment Estimated Blood Loss (ml): 300 Maternal Complications: None Provider Comments: delivery of viable male NIR bulb suctioned on perineum to abdomen tactile stimulation elicits spontaneous cry cord clamped cut by fob placenta starr intact left labial laceration repaired x 2 interrupted stitches patient tolerated well EBL 300 cc uterus firm pt bonding well with hemostasis achieved LABOR SUMMARY EDC: 07/04/2016 00:00 No. Babies in Womb: 1 Attempted: No Labor Anesthesia: None LABOR INFORMATION Reason for Induction: Not Applicable Onset of Labor: 07/02/2016 04:30 Complete Dilatation: 07/02/2016 12:00 Oxytocin: N/A Group B Beta Strep: positive Antibiotics # of Doses: 04/01 Antibiotics Time of Last Dose: Name of Antibiotic Given: VANCOMYCIN/CLINDOMYCIN Steroids Given: None Reason Steroids Not Administered: Not Applicable MEMBRANES Membranes Rupture Method: Spontaneous Rupture of Membranes: 07/02/2016 12:00 Length of Rupture (hr): 0.05 Amniotic Fluid Color: Clear Amniotic Fluid Amount: Small Amniotic Fluid Odor: Normal STAGES OF LABOR Stage 1 hr: 7 Stage 1 min: 30 Stage 2 hr: 0 Stage 2 min: 3 Stage 3 hr: 0 Stage 3 min: 3 Total Time in Labor hr: 7 Total Time in Labor min: 36 VAGINAL DELIVERY Episiotomy: None Laceration Extension: First Degree Other Laceration: LT LABIAL LAC Laceration Repair: Yes Laceration Repair Note: 1st degree left labial laceration x 2 interrupted stitches with 3.0 sh chrromic gut Sponge Count Correct: N/A Sharps Count Correct: N/A BABY A INFORMATION Delivery Date/Time: 07/02/2016 12:03 Method of Delivery: Vaginal Born in Route : No : N/A Forceps: N/A Vacuum Extraction: N/A Shoulder Dystocia : No PRESENTATION/POSITION BABY A Presentation: Cephalic Cephalic Presentation: Vertex Vertex Position: Right Occipital Anterior Breech Presentation: N/A PLACENTA INFORMATION BABY A Placenta Delivery Time : 07/02/2016 12:06 Placenta Method of Delivery: Spontaneous Placenta Status: Delivered SCORES BABY A Heart Rate 1 min: >100 bpm Resp Effort 1 min: Good Cry Reflex Irritability 1 min: Cough or Sneeze or Pulls Away Muscle Tone 1 min: Active Motion Color 1 min: Body [place], Extremities Blue Resuscitation Effort 1 min: Tactile Stimulation SCORE 1 MIN: 9 Heart Rate 5 min: >100 bpm Resp Effort 5 min: Good Cry Reflex Irritability 5 min: Cough or Sneeze or Pulls Away Muscle Tone 5 min: Active Motion Color 5 min: Completely [place] SCORE 5 MIN: 10 INFORMATION BABY A Gestational Age at Delivery: 39.5 Gestational Status: Full Term- 39- 40.6 Weeks Outcome : Liveborn Infant Condition : Stable Sex: Male IDENTIFICATION BABY A Verification Date/Time: 07/02/2016 12:26 ID Band Number: [id number] Mother's Name Verified: Yes RN Verifying : PRAVEEN HERNANDEZ, RN Additional Verifying Personnel: B DILLAPIRU, U/S WEIGHT/LENGTH BABY A Infant Birthweight (gm): 2945 Weight (lb): 6 Weight (oz): 8 Infant Length (in): 20.25 Length (cm): 51.44 CORD INFORMATION BABY A No. Cord Vessels: 3 Nuchal Cord : N/A Cord Blood Taken: Yes-For Storage (Mom's Blood type +) Infant Suction: Mouth ASSESSMENT BABY A Infant Complications: None Physical Findings at Delivery: Within Normal Limits Infant Respirations: Appears Normal Skin to Skin: Yes Skin to Skin Time (min): 10 Production Support Developer/ALS Called : No Care By: DAVIN URBINA Transferred To: Remains with Mother BABY B INFORMATION : N/A SIGNATURES Assignment: Bethany Jackson MD Signature: with User ID: Deena : with User ID: Deena
== END 2016-07-04 15:30 | disposition home or self-care (01) | DRG 775 ==
LOC: LC 07:46 → LR 08:20 → 2S 14:35
PROVIDERS: ADMIT Student in an Organized Health Care Education/Training Program; ATTEND Student in an Organized Health Care Education/Training Program
PROC: 10E0XZZ Delivery of Products of Conception, External Approach (ICD-10-PCS; principal; 2016-07-02)
PROC: 0HQ9XZZ Repair Perineum Skin, External Approach (ICD-10-PCS; 2016-07-02)
DX: O70.0 First degree perineal laceration during delivery (principal); Z3A.39 39 weeks gestation of pregnancy; Z37.0 Single live birth
CPT/HCPCS: 36415; 80307; 81005; 85025; 85027; 86592; 86850; 86900; 86901; 90707; J2590; J3370; J3490; J7060

== ENCOUNTER 2019-07-03 21:21 | Emergency (ER) | payer BC, MEDICAID, OTHER ==
[2019-07-03] MEDS ORDERED: NORMAL SALINE 1000 ML 1,000 ML IV ONE ×2 (21:48→23:05)
[2019-07-03] MEDS ORDERED: ONDANSETRON HCL INJ/PF 4 MG/2 ML SDV IV ONE (21:48)
[2019-07-03 22:34] LABS: ABSOLUTE LYMPHOCYTES (AUTO) 1.8 10^3/uL (0.5-4.7); EOSINOPHILS % (AUTO) 0.4 % (0-6); HEMOGLOBIN 12.2 g/dL (12.0-15.5); RED CELL DISTRIBUTION WIDTH 22.6 % (11.5-14.0); TOTAL CELLS COUNTED % (AUTO) 100 %; WHITE BLOOD COUNT 6.5 10^3/uL (4.0-10.5)
[2019-07-03 22:39] LABS: ABSOLUTE MONOCYTES (AUTO) 0.6 10^3/uL (0.1-1.4); ABSOLUTE NEUT (AUTO) 4.1 10^3/uL (1.7-8.2); BASOPHILS % (AUTO) 0.4 % (0-2); HEMATOCRIT 34.5 % (36.0-47.0); MEAN CORPUSCULAR HEMOGLOBIN 24.8 pg (27.0-33.4); MEAN CORPUSCULAR HGB CONC 35.4 g/dL (32.0-36.0); MEAN CORPUSCULAR VOLUME 70 fl (80-97); MONOCYTES % (AUTO) 8.5 % (3-13); PLATELET COUNT 238 10^3/uL (150-450); SEGMENTED NEUTROPHILS % (AUTO) 62.7 % (42-78)
[2019-07-03 22:53] LABS: ALBUMIN 4.4 g/dL (3.5-5.0); ALKALINE PHOSPHATASE 72 U/L (38-126); ANION GAP 10 (5-19); ASPARTATE AMINO TRANSFERASE 25 U/L (14-36); BLOOD UREA NITROGEN 12 mg/dL (7-20); CALCIUM 9.3 mg/dL (8.4-10.2); CARBON DIOXIDE 24 mmol/L (22-30); CHLORIDE 100 mmol/L (98-107); GLUCOSE 84 mg/dL (75-110); POTASSIUM 4.3 mmol/L (3.6-5.0); TOTAL PROTEIN 8.3 g/dL (6.3-8.2)
[2019-07-03 22:54] LABS: APPEARANCE,URINE SLIGHTLY-CLOUDY; BILIRUBIN,URINE NEGATIVE (NEGATIVE); COLOR,URINE YELLOW; GLUCOSE, URINE NEGATIVE (NEGATIVE); KETONES,URINE 80 mg/dL (NEGATIVE); LEUKOCYTE ESTERASE,URINE NEGATIVE (NEGATIVE); NITRITE,URINE NEGATIVE (NEGATIVE); PROTEIN,URINE NEGATIVE (NEGATIVE); URINE SPECIFIC GRAVITY 1.027; UROBILINOGEN,URINE NEGATIVE mg/dL (<2.0)
--- NOTE | 2019-07-03 23:38 | ER Document Report ---
ED GI/ - General Chief Complaint: Vomiting Stated Complaint: VOMITING/6 WKS PREG Time Seen by Provider: 07/03/19 22:53 Primary Care Provider: KHADRA PLAZA MD [Primary Care Provider] - Follow up as needed Mode of Arrival: Ambulatory Information source: Patient Notes: Patient is a 29-year-old female presenting to the emergency department chief complaint of vomiting in the setting of . Patient is a G2, P1, states she had hyperemesis gravidarum with her last . Patient was seen by her primary care provider this week who prescribed her Phenergan suppositories. Patient reports she has continued to vomit all day. She reports she is approximately 6 weeks . She denies any abdominal pain, abdominal cramping, vaginal discharge or vaginal bleeding. TRAVEL OUTSIDE OF THE [place] IN LAST 30 DAYS: No - Related Data Allergies/Adverse Reactions: Penicillins Allergy (Verified 07/02/16 02:14) Past Medical History - General Information source: Patient - Social History Smoking Status: Never Smoker Chew tobacco use (# tins/day): No Frequency of alcohol use: None Drug Abuse: None Family History: Reviewed & Not Pertinent Patient has suicidal ideation: No Patient has homicidal ideation: No - Medical History Medical History: Negative Past Surgical History: Reports: Hx Gynecologic Surgery - leep procedure - Immunizations Immunizations up to date: Yes Review of Systems - Review of Systems Gastrointestinal: Nausea, Vomiting -: Yes All other systems reviewed and negative Physical Exam - Vital signs Vitals: Temp Pulse Resp BP Pulse Ox 98.2 F 66 20 128/73 H 100 07/03/19 21:43 07/03/19 21:43 07/03/19 21:43 07/03/19 21:43 07/03/19 21:43 - Notes Notes: PHYSICAL EXAMINATION: GENERAL: Well-appearing, well-nourished and in no acute distress. HEAD: Atraumatic, normocephalic. EYES: Pupils equal round and reactive to light, extraocular movements intact, conjunctiva are normal. ENT: Nares patent, oropharynx clear without exudates. Moist mucous membranes. NECK: Normal range of motion, supple without lymphadenopathy LUNGS: Breath sounds clear to auscultation bilaterally and equal. No wheezes rales or rhonchi. HEART: Regular rate and rhythm without murmurs ABDOMEN: Soft, nontender, nondistended abdomen. No guarding, no rebound. No masses appreciated. Female : deferred Musculoskeletal: Normal range of motion, no pitting or edema. No cyanosis. NEUROLOGICAL: Cranial nerves grossly intact. Normal speech, normal gait. Normal sensory, motor exams PSYCH: Normal mood, normal affect. SKIN: Warm, Dry, normal turgor, no rashes or lesions noted. Course - Re-evaluation Re-evalutation: 07/03/19 23:35 Laboratory 07/03/19 07/03/19 07/03/19 22:20 22:20 22:39 WBC 6.5 RBC 4.90 Hgb 12.2 Hct 34.5 L MCV 70 L MCH 24.8 L MCHC 35.4 RDW 22.6 H Plt Count 238 Lymph % (Auto) 28.0 [place] % (Auto) 8.5 Eos % (Auto) 0.4 Baso % (Auto) 0.4 Absolute Neuts (auto) 4.1 Absolute Lymphs (auto) 1.8 Absolute Monos (auto) 0.6 Absolute Eos (auto) 0.0 Absolute Basos (auto) 0.0 Seg Neutrophils % 62.7 Sodium 133.8 L Potassium 4.3 Chloride 100 Carbon Dioxide 24 Anion Gap 10 BUN 12 Creatinine 0.54 Est GFR ( Amer) > 60 Est GFR (MDRD) Non-Af > 60 Glucose 84 Calcium 9.3 Total Bilirubin 1.0 Direct Bilirubin 0.0 Neonat Total Bilirubin Not Reportable Neonat Direct Bilirubin Not Reportable Neonat Indirect Bili Not Reportable AST 25 ALT 19 Alkaline Phosphatase 72 Total Protein 8.3 H Albumin 4.4 Urine Color YELLOW Urine Appearance SLIGHTLY-CLOUDY Urine pH 5.0 Ur Specific [place] 1.027 Urine Protein NEGATIVE Urine Glucose (UA) NEGATIVE Urine Ketones 80 H Urine Blood NEGATIVE Urine Nitrite NEGATIVE Urine Bilirubin NEGATIVE Urine Urobilinogen NEGATIVE Ur Leukocyte Esterase NEGATIVE Urine WBC (Auto) 5 Urine RBC (Auto) 1 Urine Bacteria (Auto) TRACE Squamous Epi Cells Auto 1 Urine Mucus (Auto) MANY Urine Ascorbic Acid NEGATIVE Patient was given 4 mg of Zofran IV prior to my evaluating the patient. She reports this has helped her nausea. She has IV fluids infusing. Labs as recorded above. Plan to give patient a total of 2 L IV fluids and discharged home with a prescription for Reglan. Patient is in agreements with this plan. - Vital Signs Vital signs: Temp Pulse Resp BP Pulse Ox 98.2 F 66 20 128/73 H 100 07/03/19 21:43 07/03/19 21:43 07/03/19 21:43 07/03/19 21:43 07/03/19 21:43 - Laboratory Result Diagrams: 07/03/19 22:20 07/03/19 22:20 Laboratory results interpreted by me: 07/03/19 07/03/19 07/03/19 22:20 22:20 22:39 Hct 34.5 L MCV 70 L MCH 24.8 L RDW 22.6 H Sodium 133.8 L Total Protein 8.3 H Urine Ketones 80 H Discharge - Discharge Clinical Impression: Hyperemesis gravidarum Condition: Stable Disposition: HOME, SELF-CARE Additional Instructions: Hyperemesis Gravidarum Hyperemesis gravidarum is the medical term for severe vomiting during . We don't know exactly why it occurs, but it's a common problem. Dehydration can occur. This reduces blood flow to the placenta, decreasing the baby's nourishment. The baby will also become dehydrated. There can be harmful changes in blood sodium, potassium, or acid balance. Our goal is to correct, and prevent, dehydration. For severe cases, we give IV fluids. Antinausea medication will be prescribed. (Don't be concerned about " defects" -- the risk to you and your baby from the hyperemesis is the biggest problem. The antinausea medication is very safe at this stage of .) Call the doctor if you have vaginal bleeding, abdominal pain, severe ligh theadedness or weakness, or other alarming symptoms. Prescriptions: Metoclopramide HCl [Reglan] 10 mg PO Q6H PRN #30 tablet PRN Reason: For Nausea/Vomiting Referrals: KHADRA PLAZA MD [Primary Care Provider] - Follow up as needed
[2019-07-04 00:31] VITALS: BP 116/68
== END 2019-07-04 00:37 | disposition home or self-care (01) ==
LOC: ER 21:21
DX: O21.0 Mild hyperemesis gravidarum (principal); Z3A.01 Less than 8 weeks gestation of pregnancy; Z88.0 Allergy status to penicillin
CPT/HCPCS: 99284; 96361; 96374; 36415; 85025; 80053; 81001; J2405; J7030

== ENCOUNTER 2019-07-20 14:38 | Emergency (ER) | payer OTHER ==
[2019-07-20] MEDS ORDERED: METOCLOPRAMIDE HCL INJ/PF 10 MG/2 ML SDV IV ONE (15:00)
[2019-07-20] MEDS ORDERED: NORMAL SALINE 1000 ML 1,000 ML IV ONE ×2 (15:00→18:06)
--- NOTE | 2019-07-20 15:00 | ER Document Report ---
ED Medical Screen (RME) - General Chief Complaint: Nausea/Vomiting Stated Complaint: VOMITING Time Seen by Provider: 07/20/19 14:55 Primary Care Provider: KHADRA PLAZA MD [Primary Care Provider] - Follow up as needed Mode of Arrival: Ambulatory Information source: Patient Notes: 29-year-old female presented to ED for complaint of hyperemesis gravidarum. She states she has been be getting sick since she was 5 weeks she is now 8 weeks 4 days. She states she was using Phenergan suppositories when she first started getting sick and then they stopped working so she came to the emergency room got IV fluids and Reglan they worked for a little while but they have now quit working. She states she did use Phenergan suppositories today but she has been throwing up all day. She states she called the CANVAS WORKER and they told her to come to the emergency room. Patient is alert oriented respirations regular nonlabored. I have greeted and performed a rapid initial assessment of this patient. A comprehensive ED assessment and evaluation of the patient, analysis of test results and completion of medical decision making process will be conducted by an additional ED providers. TRAVEL OUTSIDE OF THE [place] IN LAST 30 DAYS: No - Related Data Allergies/Adverse Reactions: Penicillins Allergy (Verified 07/02/16 02:14) Past Medical History - Social History Frequency of alcohol use: None Drug Abuse: None Family history: Reviewed & Not Pertinent Past Surgical History: Reports: Hx Gynecologic Surgery - leep procedure - Immunizations Immunizations up to date: Yes Physical Exam - Vital signs Vitals: Temp Pulse Resp BP Pulse Ox 98.8 F 93 16 131/89 H 98 07/20/19 14:43 07/20/19 14:43 07/20/19 14:43 07/20/19 14:43 07/20/19 14:43 Course - Vital Signs Vital signs: Temp Pulse Resp BP Pulse Ox 98.8 F 93 16 131/89 H 98 07/20/19 14:43 07/20/19 14:43 07/20/19 14:43 07/20/19 14:43 07/20/19 14:43 Doctor's Discharge - Discharge Referrals: KHADRA PLAZA MD [Primary Care Provider] - Follow up as needed
[2019-07-20] MEDS ORDERED: DIPHENHYDRAMINE HCL 50 MG/ML VIAL IV ONE (15:01)
--- NOTE | 2019-07-20 15:04 | ER Document Report ---
ED GI/ - General Mode of Arrival: Ambulatory Information source: Patient TRAVEL OUTSIDE OF THE [place] IN LAST 30 DAYS: No - HPI Patient complains to provider of: Vomiting. No: Abdominal pain Onset: Last week Timing/Duration: Persistent Quality of pain: No pain Vaginal bleeding (Compared to normal period): None Menstrual period history: Associated symptoms: Nausea, Vomiting. denies: Dysuria, Fever, Loss of appetite, Urinary hesitancy, Urinary frequency, Urinary retention, Vaginal discharge Exacerbated by: Denies Relieved by: Denies Similar symptoms previously: Yes Recently seen / treated by doctor: Yes <RADHA LOUIE - Last Filed: 07/20/19 16:56> <LUISA LOVE - Last Filed: 07/20/19 19:40> - General Chief Complaint: Nausea/Vomiting Stated Complaint: VOMITING Time Seen by Provider: 07/20/19 14:55 Primary Care Provider: KHADRA PLAZA MD [Primary Care Provider] - Follow up as needed Notes: Patient is currently 8 weeks G2, P1 and complains of nausea and vomiting. Patient states she is vomited 6 times today. Patient denies any provement with prescription medications at home. Patient denies any vaginal bleeding or discharge. Patient denies any abdominal tenderness. (RADHA LOUIE) - Related Data Allergies/Adverse Reactions: Penicillins Allergy (Verified 07/02/16 02:14) Past Medical History - General Information source: Patient - Social History Smoking Status: Never Smoker Frequency of alcohol use: None Drug Abuse: None Occupation: educator Lives with: Family Family History: Reviewed & Not Pertinent Patient has suicidal ideation: No Patient has homicidal ideation: No - Medical History Medical History: Negative Surgical Hx: Negative Past Surgical History: Reports: Hx Gynecologic Surgery - leep procedure - Immunizations Immunizations up to date: Yes <RADHA LOUIE - Last Filed: 07/20/19 16:56> Review of Systems - Review of Systems Constitutional: No symptoms reported. denies: Fever, Recent illness EENT: No symptoms reported Cardiovascular: No symptoms reported Respiratory: No symptoms reported Gastrointestinal: Nausea, Vomiting. denies: Abdominal pain, Poor appetite Genitourinary: No symptoms reported. denies: Dysuria Female Genitourinary: Musculoskeletal: No symptoms reported Skin: No symptoms reported Hematologic/Lymphatic: No symptoms reported Neurological/Psychological: No symptoms reported <BEV LOUIEISABEL - Last Filed: 07/20/19 16:56> Physical Exam - General General appearance: Appears well, Alert In distress: None - HEENT Head: Normocephalic, Atraumatic Eyes: Normal Conjunctiva: Normal Nasal: Normal Mouth/Lips: Normal Mucous membranes: Normal Neck: Normal, Supple - Respiratory Respiratory status: No respiratory distress Chest status: Nontender Breath sounds: Normal Chest palpation: Normal - Cardiovascular Rhythm: Regular. No: Tachycardia Heart sounds: S1 appreciated, S2 appreciated - Abdominal Inspection: Normal Distension: No distension Bowel sounds: Normal Tenderness: Nontender Organomegaly: No organomegaly - Back Back: Normal, Nontender. No: CVA tenderness - Extremities General upper extremity: Normal inspection, Normal ROM General lower extremity: Normal inspection, Normal ROM - Neurological Neuro grossly intact: Yes Cognition: Normal Ridgeley Coma Scale Eye Opening: Spontaneous Bernabe Coma Scale Verbal: Oriented Bernabe Coma Scale Motor: Obeys Commands Ridgeley Coma Scale Total: 15 - Psychological Associated symptoms: Normal affect, Normal mood - Skin Skin Temperature: Warm Skin Moisture: Dry Skin Color: Normal <RADHA LOUIE - Last Filed: 07/20/19 16:56> - Vital signs Vitals: Temp Pulse Resp BP Pulse Ox 98.8 F 93 16 131/89 H 98 07/20/19 14:43 07/20/19 14:43 07/20/19 14:43 07/20/19 14:43 07/20/19 14:43 Course - Laboratory Result Diagrams: 07/20/19 16:00 07/20/19 16:00 <RADHA LOUIE - Last Filed: 07/20/19 16:56> - Laboratory Result Diagrams: 07/20/19 16:00 07/20/19 16:00 <LUISA LOVE - Last Filed: 07/20/19 19:40> - Re-evaluation Re-evalutation: 07/20/19 16:50 Report and handoff given to Luisa Love NP (RADHA LOUIE) 07/20/19 18:19 Patient reevaluated, she states her nausea is improved. She has IV fluids infusing at this time. Will reevaluate patient again after all IV fluids have completed. 07/20/19 19:40 Patient reports she feels much improved, she has had 2 L of IV fluids here in the emergency department. I will prescribe her some additional Phenergan and Reglan. Close follow-up with [facility]. (LUISA LOVE) - Vital Signs Vital signs: Temp Pulse Resp BP Pulse Ox 98.8 F 93 16 131/89 H 98 07/20/19 14:43 07/20/19 14:43 07/20/19 14:43 07/20/19 14:43 07/20/19 14:43 - Laboratory Laboratory results interpreted by me: 07/20/19 07/20/19 07/20/19 16:00 16:00 17:34 Hgb 11.1 L Hct 31.1 L MCV 71 L MCH 25.1 L RDW 22.5 H Sodium 131.7 L Glucose 73 L Urine Ketones 80 H Urine Blood SMALL H Discharge <RADHA LOUIE - Last Filed: 07/20/19 16:56> <LUISA LOVE - Last Filed: 07/20/19 19:40> - Discharge Clinical Impression: Nausea and vomiting in Condition: Stable Disposition: HOME, SELF-CARE Additional Instructions: Hyperemesis Gravidarum Hyperemesis gravidarum is the medical term for severe vomiting during . We don't know exactly why it occurs, but it's a common problem. Dehydration can occur. This reduces blood flow to the placenta, decreasing the baby's nourishment. The baby will also become dehydrated. There can be harmful changes in blood sodium, potassium, or acid balance. Our goal is to correct, and prevent, dehydration. For severe cases, we give IV fluids. Antinausea medication will be prescribed. (Don't be concerned about " defects" -- the risk to you and your baby from the hyperemesis is the biggest problem. The antinausea medication is very safe at this stage of .) Call the doctor if you have vaginal bleeding, abdominal pain, severe lightheadedness or weakness, or other alarming symptoms. Prescriptions: Promethazine HCl [Phenergan 25 mg Tablet] 1 - 2 tab PO Q6H PRN #15 tablet PRN Reason: Metoclopramide HCl [Reglan 10 mg Tablet] 1 - 2 tab PO ASDIR PRN #25 tablet PRN Reason: Referrals: KHADRA PLAZA MD [Primary Care Provider] - Follow up as needed
[2019-07-20 16:28] LABS: ABSOLUTE LYMPHOCYTES (AUTO) 1.2 10^3/uL (0.5-4.7); ABSOLUTE MONOCYTES (AUTO) 0.4 10^3/uL (0.1-1.4); ABSOLUTE NEUT (AUTO) 5.4 10^3/uL (1.7-8.2); BASOPHILS % (AUTO) 0.5 % (0-2); EOSINOPHILS % (AUTO) 0.2 % (0-6); HEMATOCRIT 31.1 % (36.0-47.0); HEMOGLOBIN 11.1 g/dL (12.0-15.5); LYMPHOCYTES % (AUTO) 17.1 % (13-45); MEAN CORPUSCULAR HEMOGLOBIN 25.1 pg (27.0-33.4); MEAN CORPUSCULAR HGB CONC 35.6 g/dL (32.0-36.0); MEAN CORPUSCULAR VOLUME 71 fl (80-97); MONOCYTES % (AUTO) 5.3 % (3-13); PLATELET COUNT 229 10^3/uL (150-450); RED CELL DISTRIBUTION WIDTH 22.5 % (11.5-14.0); SEGMENTED NEUTROPHILS % (AUTO) 76.9 % (42-78); TOTAL CELLS COUNTED % (AUTO) 100 %; WHITE BLOOD COUNT 7.1 10^3/uL (4.0-10.5)
[2019-07-20 16:45] LABS: ALBUMIN 4.2 g/dL (3.5-5.0); ALKALINE PHOSPHATASE 69 U/L (38-126); ANION GAP 10 (5-19); ASPARTATE AMINO TRANSFERASE 28 U/L (14-36); BILIRUBIN,TOTAL 0.9 mg/dL (0.2-1.3); BLOOD UREA NITROGEN 11 mg/dL (7-20); CALCIUM 9.1 mg/dL (8.4-10.2); CARBON DIOXIDE 22 mmol/L (22-30); CHLORIDE 100 mmol/L (98-107); GLUCOSE 73 mg/dL (75-110); POTASSIUM 4.1 mmol/L (3.6-5.0); TOTAL PROTEIN 7.8 g/dL (6.3-8.2)
[2019-07-20 16:55] LABS: ANISOCYTOSIS 3+; HYPOCHROMASIA SLIGHT; OVALOCYTES SLIGHT; POIKILOCYTOSIS SLIGHT; SCHISTOCYTES SLIGHT; TARGET CELLS SLIGHT
[2019-07-20 16:56] LABS: PLATELET COMMENT ADEQUATE
[2019-07-20 17:59] LABS: APPEARANCE,URINE SLIGHTLY-CLOUDY; BILIRUBIN,URINE NEGATIVE (NEGATIVE); COLOR,URINE YELLOW; GLUCOSE, URINE NEGATIVE (NEGATIVE); KETONES,URINE 80 mg/dL (NEGATIVE); PROTEIN,URINE NEGATIVE (NEGATIVE); URINE SPECIFIC GRAVITY 1.021; UROBILINOGEN,URINE NEGATIVE mg/dL (<2.0)
[2019-07-20 19:54] VITALS: BP 127/72
== END 2019-07-20 19:54 | disposition home or self-care (01) ==
LOC: ER 14:38
DX: O21.9 Vomiting of pregnancy, unspecified (principal); Z3A.08 8 weeks gestation of pregnancy; Z88.0 Allergy status to penicillin
CPT/HCPCS: 99284; 96361; 96374; 96375; 36415; 85025; 80053; 81001; J1200; J2765; J7030

== ENCOUNTER 2019-08-07 18:01 | Emergency (ER) | payer OTHER ==
--- NOTE | 2019-08-07 18:28 | ER Document Report ---
ED Medical Screen (RME) - General Chief Complaint: Vomiting Stated Complaint: VOMITING Time Seen by Provider: 08/07/19 18:20 Primary Care Provider: KHADRA PLAZA MD [Primary Care Provider] - Follow up as needed Mode of Arrival: Ambulatory Information source: Patient Notes: 29-year-old female approximately 11 weeks presents to the emergency department with hyperemesis. Reports she is vomited every 30 minutes today. Denies fever and diarrhea. Reports she is taking her Reglan without success. I have greeted and performed a rapid initial assessment of this patient. A comprehensive ED assessment and evaluation of the patient, analysis of test results and completion of the medical decision making process will be conducted by additional ED providers. TRAVEL OUTSIDE OF THE [place] IN LAST 30 DAYS: No - Related Data Allergies/Adverse Reactions: Penicillins Allergy (Verified 07/02/16 02:14) Past Medical History - Social History Family history: Reviewed & Not Pertinent Past Surgical History: Reports: Hx Gynecologic Surgery - leep procedure - Immunizations Immunizations up to date: Yes Physical Exam - Vital signs Vitals: Temp Pulse Resp BP Pulse Ox 98.3 F 91 14 136/75 H 98 08/07/19 18:06 08/07/19 18:06 08/07/19 18:06 08/07/19 18:06 08/07/19 18:06 Course - Vital Signs Vital signs: Temp Pulse Resp BP Pulse Ox 98.3 F 91 14 136/75 H 98 08/07/19 18:20 08/07/19 18:06 08/07/19 18:06 08/07/19 18:06 08/07/19 18:06 Doctor's Discharge - Discharge Referrals: KHADRA PLAZA MD [Primary Care Provider] - Follow up as needed
[2019-08-07] MEDS ORDERED: METOCLOPRAMIDE HCL INJ/PF 10 MG/2 ML SDV IV ONE (18:29)
[2019-08-07] MEDS ORDERED: RINGERS SOLUTION,LACTATED 1,000 ML IV ONE (18:29)
[2019-08-07 19:12] LABS: ABSOLUTE LYMPHOCYTES (AUTO) 0.9 10^3/uL (0.5-4.7); ABSOLUTE MONOCYTES (AUTO) 0.2 10^3/uL (0.1-1.4); ABSOLUTE NEUT (AUTO) 6.9 10^3/uL (1.7-8.2); BASOPHILS % (AUTO) 0.3 % (0-2); EOSINOPHILS % (AUTO) 0.2 % (0-6); HEMATOCRIT 38.5 % (36.0-47.0); HEMOGLOBIN 13.9 g/dL (12.0-15.5); LYMPHOCYTES % (AUTO) 11.1 % (13-45); MEAN CORPUSCULAR HEMOGLOBIN 26.3 pg (27.0-33.4); MEAN CORPUSCULAR HGB CONC 36.1 g/dL (32.0-36.0); MEAN CORPUSCULAR VOLUME 73 fl (80-97); MONOCYTES % (AUTO) 2.9 % (3-13); PLATELET COUNT 277 10^3/uL (150-450); RED BLOOD COUNT 5.29 10^6/uL (3.72-5.28); RED CELL DISTRIBUTION WIDTH 20.3 % (11.5-14.0); SEGMENTED NEUTROPHILS % (AUTO) 85.5 % (42-78); TOTAL CELLS COUNTED % (AUTO) 100 %
[2019-08-07 19:16] LABS: APPEARANCE,URINE CLEAR; BILIRUBIN,URINE NEGATIVE (NEGATIVE); COLOR,URINE YELLOW; GLUCOSE, URINE NEGATIVE (NEGATIVE); KETONES,URINE 80 mg/dL (NEGATIVE); LEUKOCYTE ESTERASE,URINE NEGATIVE (NEGATIVE); NITRITE,URINE NEGATIVE (NEGATIVE); PROTEIN,URINE 30 mg/dL (NEGATIVE); URINE SPECIFIC GRAVITY 1.029; UROBILINOGEN,URINE NEGATIVE mg/dL (<2.0)
[2019-08-07 19:32] LABS: ALBUMIN 4.8 g/dL (3.5-5.0); ALKALINE PHOSPHATASE 82 U/L (38-126); ANION GAP 17 (5-19); ASPARTATE AMINO TRANSFERASE 34 U/L (14-36); BILIRUBIN,DIRECT 0.1 mg/dL (0.0-0.4); BILIRUBIN,TOTAL 1.1 mg/dL (0.2-1.3); BLOOD UREA NITROGEN 12 mg/dL (7-20); CALCIUM 9.9 mg/dL (8.4-10.2); CARBON DIOXIDE 16 mmol/L (22-30); CHLORIDE 101 mmol/L (98-107); GLUCOSE 85 mg/dL (75-110); POTASSIUM 4.4 mmol/L (3.6-5.0); TOTAL PROTEIN 9.2 g/dL (6.3-8.2)
[2019-08-07] MEDS ORDERED: DEXTROSE 5%-NORMAL SALINE 500 ML IV ONE (19:55)
[2019-08-07] MEDS ORDERED: ONDANSETRON HCL INJ/PF 4 MG/2 ML SDV IV ONE (20:42)
[2019-08-07] MEDS ORDERED: ONDANSETRON ODT 4 MG TAB (6 TAB/ER DISP) PO PRN (22:40)
--- NOTE | 2019-08-07 22:42 | ER Document Report ---
Entered by FELIBERTO JACKSON SCRIBE 08/07/192042 Acting as scribe for:CHANCE NAVAS DO ED GI/ - General Chief Complaint: Vomiting Stated Complaint: VOMITING Time Seen by Provider: 08/07/19 18:20 Primary Care Provider: KHADRA PLAZA MD [ACTIVE STAFF] - Follow up as needed Mode of Arrival: Ambulatory Information source: Patient Notes: This 29 year old female patient that is 11 weeks () presents to the emergency department tonight with complaints of nausea and vomiting. Patient reports that she struggled with nausea and vomiting throughout her first . Patient states that she follows with [facility] for OB. Patient states that she has reglan at home which has not been controlling her nausea at all. Patient reports that zofran worked well for her during her first and she wishes to try that again today. Patient denies any vaginal bleeding, abdominal pain, or any pain at all. Patient states she is only here because she feels dehydrated and cannot stop vomiting. TRAVEL OUTSIDE OF THE [place] IN LAST 30 DAYS: No - HPI heart tones (bpm): 118 - Related Data Allergies/Adverse Reactions: Penicillins Allergy (Verified 07/02/16 02:14) Past Medical History - General Information source: Patient - Social History Smoking Status: Never Smoker Cigarette use (# per day): No Frequency of alcohol use: None Drug Abuse: None Lives with: Family Family History: Reviewed & Not Pertinent Patient has homicidal ideation: No - Medical History Medical History: Negative Past Surgical History: Reports: Hx Gynecologic Surgery - LEEP procedure - Immunizations Immunizations up to date: Yes Review of Systems - Review of Systems Constitutional: No symptoms reported EENT: No symptoms reported Cardiovascular: No symptoms reported Respiratory: No symptoms reported Gastrointestinal: See HPI, Nausea, Vomiting. denies: Abdominal pain Genitourinary: No symptoms reported Female Genitourinary: See HPI, - 11 weeks. denies: Vaginal bleeding Musculoskeletal: No symptoms reported Skin: No symptoms reported Hematologic/Lymphatic: No symptoms reported Neurological/Psychological: No symptoms reported -: Yes All other systems reviewed and negative Physical Exam - Vital signs Vitals: Temp Pulse Resp BP Pulse Ox 98.3 F 91 14 136/75 H 98 08/07/19 18:06 08/07/19 18:06 08/07/19 18:06 08/07/19 18:06 08/07/19 18:06 Course - Vital Signs Vital signs: Temp Pulse Resp BP Pulse Ox 97.9 F 65 16 111/60 97 08/07/19 20:28 08/07/19 20:28 08/07/19 20:28 08/07/19 20:28 08/07/19 20:28 - Laboratory Result Diagrams: 08/07/19 18:57 08/07/19 18:57 Laboratory results interpreted by me: 08/07/19 08/07/19 08/07/19 18:52 18:57 18:57 RBC 5.29 H MCV 73 L MCH 26.3 L MCHC 36.1 H RDW 20.3 H Lymph % (Auto) 11.1 L Osborne % (Auto) 2.9 L Seg Neutrophils % 85.5 H Sodium 133.7 L Carbon Dioxide 16 L Total Protein 9.2 H Urine Protein 30 H Urine Ketones 80 H Discharge - Discharge Clinical Impression: Hyperemesis gravidarum, Dehydration Qualifiers: Weeks of gestation: 11 weeks Qualified Code(s): Z3A.11 - 11 weeks gestation of Condition: Stable Disposition: HOME, SELF-CARE Instructions: Hyperemesis Gravidarum ([facility]), Dehydration ([facility]) Prescriptions: Ondansetron [Zofran Odt 4 mg Tablet] 1 tab PO Q6HP PRN #30 tab.rapdis PRN Reason: For Nausea/Vomiting Referrals: KHADRA PLAZA MD [ACTIVE STAFF] - Follow up in 3-5 days I personally performed the services described in the documentation, reviewed and edited the documentation which was dictated to the scribe in my presence, and it accurately records my words and actions.
[2019-08-07 23:01] VITALS: BP 100/53
== END 2019-08-07 23:01 | disposition home or self-care (01) ==
LOC: ER 18:01
DX: O21.0 Mild hyperemesis gravidarum (principal); E86.0 Dehydration; Z3A.11 11 weeks gestation of pregnancy; Z88.0 Allergy status to penicillin
CPT/HCPCS: 99284; 96361; 96374; 96375; 36415; 85025; 80053; 81001; J2765; J2405; J7042; J7120

== ENCOUNTER 2020-02-23 11:29 | Inpatient (IN) | payer OTHER ==
--- NOTE | 2020-02-23 12:27 | Admission Physical ---
Datetime Report Generated by CPN: 02/23/2020 12:27 CURRENT ADMISSION Chief Complaint: Other Chief Complaint Other: home delivery Indication for Induction: Not Applicable Admit Impression : Observation/Evaluation Admit Plan: Admit to Unit ALLERGIES Medication Allergies: Penicillins (02/23/2020) PHYSICAL EXAM General: Normal HEENT: Normal Neurologic: Normal Thyroid: Deferred Heart: Normal Lungs: Normal Breast: Deferred Back: Normal Abdomen: Normal Genitourinary Exam: Normal Extremities: Normal DTRs: Deferred Pelvic Type: Adequate Physical Exam Comments: no lacerations. fundus firm at U, no bleeding Vital Signs: Reviewed Details Vital Signs: mild range elevated BPs FETUS A Admit Comment: admitted following delivery of baby girl this morning at 0700. states it was a planned home delivery that she never reported during her care although she did have regular PNC. states her fluid was clear, baby was born without compications. reports drying, suctioning, stimulating, and waming the baby immediately. states the placenta delivered easily. reports minimal bleeding after delivery. =GHTN, GBS neg, anemia, hgb C trait, EDC by LMP c/w 7w sono. denies RUBIN/visual changes/RUQ pain INFORMED CONSENT Assignment: Elsy Whaley MD Signature: with User ID: [email or web address] : with User ID: [email or web address]
[2020-02-23] MEDS ORDERED: PROMETHAZINE HCL 25 MG TABLET PO PRN (12:30)
[2020-02-23] MEDS ORDERED: PSEUDOEPHEDRINE HCL 30 MG TABLET PO PRN (12:30)
[2020-02-23] MEDS ORDERED: DIBUCAINE 1% OINTMENT 28 GM TP PRN (12:30)
[2020-02-23] MEDS ORDERED: PROMETHAZINE HCL INJ 25 MG/1 ML VIAL IV PRN (12:30)
[2020-02-23] MEDS ORDERED: ZOLPIDEM TARTRATE 5 MG TABLET PO PRN (12:30)
[2020-02-23] MEDS ORDERED: GLYCERIN/WITCH HAZEL LEAF 1 EACH MED..WIPE TP PRN (12:30)
[2020-02-23] MEDS ORDERED: MAGNESIUM HYDROXIDE SUSP 30 ML UDCUP PO PRN (12:30)
[2020-02-23] MEDS ORDERED: DIPH/PERTUSS(ACELL)/TETANUS VAC/PF 0.5 ML SYR (>=10YO) IM PRN (12:30)
[2020-02-23] MEDS ORDERED: BENZOCAINE/MENTHOL AEROSOL SPRAY 56 ML TOP PRN (12:30)
[2020-02-23] MEDS ORDERED: ACETAMINOPHEN 325 MG TABLET PO PRN (12:30)
[2020-02-23] MEDS ORDERED: NA PHOS,M-B/NA PHOS,DI-BA (ADULT) 133 ML ENEMA PR PRN (12:30)
[2020-02-23] MEDS ORDERED: PROMETHAZINE HCL 25 MG SUPP.RECT PR PRN (12:30)
[2020-02-23] MEDS ORDERED: DIPHENHYDRAMINE HCL 25 MG CAPSULE PO PRN (12:30)
[2020-02-23] MEDS ORDERED: ACETAMINOPHEN WITH CODEINE #3 TABLET PO PRN ×2 (12:30)
[2020-02-23] MEDS ORDERED: MEASLES,MUMPS&RUBELLA VACC/PF 0.5 ML VIAL SUBCUT PRN (12:30)
[2020-02-23] MEDS ORDERED: OXYTOCIN/0.9 % SODIUM CHLORIDE 30 UNIT/500 ML RTUINJ IV PRN (12:30)
[2020-02-23 12:57] LABS: ALBUMIN 3.1 g/dL (3.5-5.0); ALKALINE PHOSPHATASE 268 U/L (38-126); ANION GAP 8 (5-19); ASPARTATE AMINO TRANSFERASE 33 U/L (14-36); BILIRUBIN,DIRECT 0.1 mg/dL (0.0-0.4); BILIRUBIN,TOTAL 0.6 mg/dL (0.2-1.3); BLOOD UREA NITROGEN 9 mg/dL (7-20); CALCIUM 8.9 mg/dL (8.4-10.2); CARBON DIOXIDE 18 mmol/L (22-30); CHLORIDE 108 mmol/L (98-107); GLUCOSE 89 mg/dL (75-110); POTASSIUM 4.1 mmol/L (3.6-5.0); TOTAL PROTEIN 6.4 g/dL (6.3-8.2); URIC ACID 3.6 mg/dL (2.5-6.2)
[2020-02-23] MEDS ORDERED: IBUPROFEN 800 MG TABLET PO SCH (14:00)
[2020-02-23 14:25] VITALS: BP 134/77
[2020-02-23 15:37] LABS: ABSOLUTE LYMPHOCYTES (AUTO) 1.1 10^3/uL (0.5-4.7); ABSOLUTE MONOCYTES (AUTO) 0.5 10^3/uL (0.1-1.4); ABSOLUTE NEUT (AUTO) 7.9 10^3/uL (1.7-8.2); BASOPHILS % (AUTO) 0.5 % (0-2); HEMATOCRIT 32.4 % (36.0-47.0); LYMPHOCYTES % (AUTO) 11.1 % (13-45); MEAN CORPUSCULAR HEMOGLOBIN 24.5 pg (27.0-33.4); MEAN CORPUSCULAR HGB CONC 33.9 g/dL (32.0-36.0); MEAN CORPUSCULAR VOLUME 72 fl (80-97); MONOCYTES % (AUTO) 5.7 % (3-13); PLATELET COUNT 178 10^3/uL (150-450); RED BLOOD COUNT 4.48 10^6/uL (3.72-5.28); RED CELL DISTRIBUTION WIDTH 22.4 % (11.5-14.0); SEGMENTED NEUTROPHILS % (AUTO) 82.7 % (42-78); TOTAL CELLS COUNTED % (AUTO) 100 %; WHITE BLOOD COUNT 9.5 10^3/uL (4.0-10.5)
--- NOTE | 2020-02-23 17:01 | Left Against Medical Advice ---
Against Medical Advice Admission Date/Time: 02/23/20 11:29 Primary Care Provider: Date of Patient Emigration: 02/23/20 - Diagnosis: (1) Encounter for care after unplanned out of hospital delivery Is this a current diagnosis for this admission?: Yes - Summary: Summary: Please see Admission and Progress Notes as well. TAE HELMS is a 29 F, who LEFT AGAINST MEDICAL ADVICE. The Patient was admitted on 02/23/20 11:29 after delivering infant at home. Pt had planned a home delivery and delivered unattended by a healthcare provider. She has had no complaints and no sequela of significance. She desires to leave for home. Counseled on potential complications including hemorrage, infection, etc. Signs and symptoms to return to er for reviewed. No concerns for follow up and potential child endangerment. Discussed with nursing soaking pits supervisor who agrees with assessment. Patient to sign out AMA and is ok for discharge.
[2020-02-23] MEDS ORDERED: DOCUSATE SODIUM 100 MG CAPSULE PO SCH (18:00)
[2020-02-23] MEDS ORDERED: FERROUS SULFATE 325 MG TABLET PO SCH (18:00)
[2020-02-23] MEDS ORDERED: FAMOTIDINE 20 MG TABLET PO SCH (22:00)
[2020-02-24] MEDS ORDERED: PRENATAL VITAMIN W DHA CAPSULE PO SCH (10:00)
[2020-02-24] MEDS ORDERED: SENNOSIDES/DOCUSATE 8.6-50 MG 1 EACH TABLET PO SCH (10:00)
== END 2020-02-23 16:45 | disposition left against medical advice (07) | DRG 776 ==
LOC: LR 11:29 → 2S 14:09
PROVIDERS: ADMIT Obstetrics & Gynecology; ATTEND Obstetrics & Gynecology
DX: O13.5 Gestational [pregnancy-induced] hypertension without significant proteinuria, complicating the puerperium (principal); Z39.0 Encounter for care and examination of mother immediately after delivery; Z88.0 Allergy status to penicillin
CPT/HCPCS: 36415; 80053; 83615; 84550; 85025; 86592; 86850; 86900; 86901; 88307